=== PATIENT | male | born 1940 | race Asian ===

== ENCOUNTER 2017-05-17 21:38 | Inpatient (IN) | payer MEDICARE, OTHER ==
[2017-05-18 00:23] VITALS: BP 146/66
[2017-05-18 00:31] LABS: BASOPHILE ABSOLUTE 0.1 Th/cumm (0-0.2); EOSINOPHILE ABSOLUTE 0.2 Th/cmm (0.1-0.4); HEMATOCRIT 29.3 % (41.0-60); HEMOGLOBIN 9.9 gm/dL (12-16); LYMPHOCYTE ABSOLUTE 1.6 Th/cmm (1.5-3.0); MANUAL DIFF REQUIRED? YES; MEAN CELL VOLUME 93.9 fl (80-99); MEAN CORPUSCULAR HEMOGLOBIN 31.7 pg (27.0-31.0); MEAN CORPUSCULAR HGB CONC 33.7 pg (28.0-36.0); MEAN PLATELET VOLUME 7.7 fl; MONOCYTE ABSOLUTE 1.7 Th/cmm (0.3-1.0); NEUTROPHILE ABSOLUTE 16.8 Th/cmm (1.8-8.0); PLATELET COUNT 331 Th/cmm (150-400); RED BLOOD COUNT 3.12 Mil/cmm (3.80-5.80); RED CELL DISTRIBUTION WIDTH 13.6 % (11.5-20.0)
[2017-05-18 00:49] LABS: ALB/GLOB RATIO 0.8 (1.0-1.8); ALBUMIN 3.5 gm/dL (4.2-5.5); ALKALINE PHOSPHATASE 62 U/L (34-104); ANION GAP 14.1 (7.0-16.0); BILIRUBIN,DIRECT 0.11 mg/dL (0.0-0.2); BILIRUBIN,TOTAL 0.5 mg/dL (0.3-1.0); CARBON DIOXIDE 23.2 mEq/L (21.0-31.0); CHLORIDE 93 mEq/L (98-107); GLUCOSE 316 mg/dL (70-105); MAGNESIUM 2.6 mg/dL (1.9-2.7); PHOSPHOROUS 3.6 mg/dL (2.5-5.0); POTASSIUM SERUM 4.3 mEq/L (3.5-5.1); SGOT 14 U/L (13-39); SGPT/ALT 12 U/L (7-52); SODIUM SERUM 126 mEq/L (136-145); TOTAL PROTEIN,SERUM 7.7 gm/dL (6.0-8.3)
[2017-05-18 01:14] LABS: WHITE BLOOD COUNT 20.4 Th/cmm (4.8-10.8)
[2017-05-18 01:24] LABS: BUN - UREA NITROGEN 90 mg/dL (7-25)
[2017-05-18 01:25] LABS: CREATININE - SERUM 7.8 mg/dL (0.7-1.3)
[2017-05-18] MEDS ORDERED: metroNIDAZOLE 500mg/NS 100mL 500 MG/100 ML BAG IV ONE ×2 (01:33→02:17)
[2017-05-18] MEDS ORDERED: Piperacillin Sodium/Tazobact 2.25 gm Vial IV ONE (02:17)
[2017-05-18 02:40] LABS: BAND NEUTROPHILE 10 % (0-10); BASOPHIL 0 % (0-3); EOSINOPHIL 2 % (0-5); LYMPHOCYTE 4 % (20-50); MONOCYTE 4 % (2-10); NEUTROPHILS 80 % (40-80); TOTAL CELLS COUNTED 100
--- NOTE | 2017-05-18 03:24 | Transfer Summary ---
DATE OF TRANSFER: CODE: Full code patient His x-ray of the chest did not show any evidence of pneumonitis to best of my knowledge, but his white count came back to be high at 20,400 and hemoglobin is 9.9, and hematocrit is 29.3. He is feeling weak and tired and most likely he has evidence of peritonitis because of peritoneal dialysis that he gets, so most likely should be admitted in the hospital. The peritoneal shunt that he has should be removed. He might need a Perm-A-Cath and he will need antibiotics and I spoke to the patient's son and the son wanted Dr. Steve to be admitting doctor, so we will let Dr. Steve call him up and see if he would like to admit the patient in the hospital and we will start him on some antibiotic at the present moment. FINAL DIAGNOSES: 1. Most likely bacterial peritonitis. 2. History of fall. 3. Sprain in the right thumb. 4. Diabetes mellitus. 5. Coronary artery disease, coronary artery bypass grafting. 6. History of coronary artery bypass grafting x3 7. Hypercholesterolemia. 8. History of enlarged prostate. 9. Hypertension, hypertensive heart disease. 10. Peripheral vascular disease. 11. Glaucoma. 12. History of ulcers in the lower extremities. 13. Peripheral vascular disease. 14. The patient having gastroesophageal reflux disease. The most important diagnosis would be peritonitis, coronary artery disease, and end-stage renal failure, these are the three very acute, those are the diagnoses that I mentioned. The patient will be admitted under Dr. Steve. JOB# [id number]
[2017-05-18] MEDS ORDERED: Dextrose 50% 50 mL Abboject IVP PRN (03:41)
[2017-05-18] MEDS ORDERED: GLUCAGON HCl 1 MG KIT IM PRN (03:41)
[2017-05-18 05:49] LABS: BASOPHILE ABSOLUTE 0.1 Th/cumm (0-0.2); EOSINOPHILE ABSOLUTE 0.3 Th/cmm (0.1-0.4); HEMATOCRIT 29.4 % (41.0-60); HEMOGLOBIN 10.1 gm/dL (12-16); LYMPHOCYTE ABSOLUTE 1.5 Th/cmm (1.5-3.0); MEAN CELL VOLUME 92.9 fl (80-99); MEAN CORPUSCULAR HEMOGLOBIN 31.8 pg (27.0-31.0); MEAN CORPUSCULAR HGB CONC 34.2 pg (28.0-36.0); MEAN PLATELET VOLUME 7.6 fl; MONOCYTE ABSOLUTE 1.2 Th/cmm (0.3-1.0); PLATELET COUNT 333 Th/cmm (150-400); RED BLOOD COUNT 3.17 Mil/cmm (3.80-5.80); RED CELL DISTRIBUTION WIDTH 13.4 % (11.5-20.0)
[2017-05-18 06:07] LABS: ALB/GLOB RATIO 0.8 (1.0-1.8); ALBUMIN 3.3 gm/dL (4.2-5.5); ALKALINE PHOSPHATASE 59 U/L (34-104); ANION GAP 14.7 (7.0-16.0); BILIRUBIN,TOTAL 0.6 mg/dL (0.3-1.0); CALCIUM SERUM 8.9 mg/dL (8.6-10.3); CARBON DIOXIDE 24.5 mEq/L (21.0-31.0); CHLORIDE 93 mEq/L (98-107); ESR SEDIMENTATION SED RATE 36 mm/hr (0-20); GLUCOSE 265 mg/dL (70-105); MAGNESIUM 2.4 mg/dL (1.9-2.7); POTASSIUM SERUM 4.2 mEq/L (3.5-5.1); SGOT 13 U/L (13-39); SGPT/ALT 10 U/L (7-52); SODIUM SERUM 128 mEq/L (136-145); TOTAL PROTEIN,SERUM 7.3 gm/dL (6.0-8.3)
[2017-05-18 06:18] LABS: BUN - UREA NITROGEN 93 mg/dL (7-25)
[2017-05-18 06:19] LABS: CREATININE - SERUM 7.9 mg/dL (0.7-1.3)
[2017-05-18 06:24] LABS: % EOSINOPHILS 1.5 % (0.0-5.0); % LYMPHOCYTES 7.4 % (20.0-50.0); % MONOCYTES 5.8 % (2.0-10.0); WHITE BLOOD COUNT 20.1 Th/cmm (4.8-10.8)
[2017-05-18 06:25] LABS: % BASOPHILS 0.3 % (0.0-2.0)
--- NOTE | 2017-05-18 07:00 | ER Physician Documentation ---
DATE OF SERVICE: EMERGENCY ROOM EVALUATION AND TREATMENT This is a 77-year-old male patient who had a fall and hurt his right thumb and the base of the thumb is swollen and painful, and they want an x-ray to be done. The patient also has other medical history which will be listed below. HISTORY OF PRESENT ILLNESS: The patient had a fall today injuring his right great thumb and the base of the thumb which is painful, and the patient will need an x-ray of the right thumb. The patient has pain in the right thumb plus the patient's history was taken from the patient. The patient states that he had a fall, hurt his leg. PAST MEDICAL HISTORY: Includes end-stage renal failure, on hemodialysis, now he is getting daily peritoneal dialysis. He has diabetes mellitus, degenerative joint disease. He has arthritis. He has hypertension. 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 He says it just presented a month ago, but I think this might be present there for years. He must have just watched it. On the chest, he has a surgical scar of CABG seen. Peritoneal access is seen. OTHER MEDICAL PROBLEMS AND REVIEW OF SYSTEMS: EYES: No history of double vision, blurring, blindness, but he uses some eyedrops, Lumigan ____, in the right eye for his glaucoma. When I used the word glaucoma, he said yes, but I am not sure he is using that for that or some other associated condition also. ENT: No ear problem. No ear discharge. Pupils are equal, reacting to light and accommodation. Carotids are normal. Normal uplift. No bruit. CENTRAL NERVOUS SYSTEM: No history of TIA, stroke, encephalitis, meningitis. BONES AND JOINTS: The patient has some pain in the right lower extremity. There are 2 different ulcers, one is an ulcer that is healed and needs debridement. There is other ulcer that is not healing and he is putting some ointment, I am not sure what kind of ointment he is putting, but it is just some ointment that is recommended by his doctor, he puts it on, it does not heal him. PULMONARY CARRERA: The patient does not have any pneumonia, TB, pulmonary embolism, COPD, emphysema, bronchitis. CARDIAC CARRERA: The patient has myocardial revascularization surgery, about 3-vessel coronary artery bypass graft surgery done at [facility]. ENDOCRINE CARRERA: The patient has diabetes mellitus, but no history of hyper or hypothyroidism. No history of any Ranjit syndrome or thyroid disease. GASTROINTESTINAL CARRERA: No history of diarrhea, constipation, vomiting per the patient. GENITOURINARY CARRERA: The patient has end-stage renal failure. He is on peritoneal dialysis program. Before that, he was getting hemodialysis, but now he wants only peritoneal dialysis as he does not feel like going outside. Other total 12-lead review of systems was reviewed. The patient has a lipoma in the back. He has some pain in the lower back. He has mild GERD. He has no angina pectoris, no myocardial infarction. No rheumatic fever, valvular heart disease, pericardial disease. The patient does not have any problem with urination. He used to take prazosin 2 mg as needed, but he is not taking it now. ALLERGIES: No known allergies. CURRENT MEDICATIONS: Include that he is taking Renvela 800 mg one at mealtime; Protonix 40 mg once a day; simvastatin 20 mg once a day for his hypercholesterolemia; nicardipine 20 mg once a day, I do not think so this should be given, instead of that amlodipine and ANA inhibitor and beta-blockers are the ones to be given for this kind of patient; Isordil dinitrate, he is taking 20 mg twice a day which is a low dose, I am not sure whether he is very sensitive to that; metoprolol, he takes 50 mg twice a day; clonidine 0.3 mg twice a day; hydralazine 25 mg twice a day; gabapentin 100 mg twice a day; Lumigan 0.01% one drop at bedtime in the right eye; he is taking Lantus insulin 12 units at bedtime. FAMILY HISTORY: He has a history of hypertension and diabetes mellitus. PHYSICAL EXAMINATION: The patient on examination appears to be awake, alert, oriented, not in any acute cardiorespiratory distress. He appears to be 5 to 10 years older than the stated age. Most of his hairs are goodwin. He presented with his daughter and the . He said he fell down from the bed and he hurt himself in the hand. This is the first time. He did not want to say more details about the thing, but anyway he fell down. The base of the thumb is swollen, painful, and tender. The pulse in the right arm is somewhat feeble, but the left arm is normal. Conjunctivae are pink. Sclerae are white. HEENT is normal. He has bilateral cataract surgery done in the past. He has peritoneal dialysis catheter in the abdomen. No edema in the legs. No cyanosis, no petechia, no ecchymosis. He has ulcer in the lower extremities. The right lower leg above the ankle has two ulcers, one needs to be debrided, it is about 1 inch in size, but it is irregular in shape, about 5-6 mm irregularity. The other one is about 1 inch in size with areas of pus coming out from there. They are doing some dressing. They are doing ____ application, but not much of help to him. The patient's chest is clear. Tracheal ring central. Fairly good air entry in both lungs without any rales, rhonchi, or bronchial wheezing. Abdomen is soft, benign, and negative. Has a peritoneal dialysis catheter done by the son. Heart reveals a midline open CABG scar. S1, S2 are normal. Fourth heart sound is heard. Third heart sound is absent. No pericardial rub. No pacemaker, ICD device, etc are seen. Central nervous system is within normal limits. The triage nurse took the vital signs showing temperature to be 98.4, pulse is 91, respirations 18, blood pressure 146/66, saturation 96%. Height of 5 feet 8 inches, weighing 162 pounds. Pain is 5/10. Location of the pain is in the right thumb. He is a full code. He uses cane at home to walk. Loss of consciousness ____. He took flu vaccination on 12/25. He is not sure about pneumonia, tetanus. Drinking: He denies drinking formerly. He smoked formerly 45 years ago. So, he has history of COPD by default for sure. CLINICAL IMPRESSION: The patient has history of fall from the bed, injuring his right great thumb. One needs to rule out any fracture in the thumb, so we ordered an x-ray and we will give him some pain medication as needed. Other diagnoses include: 1. Diabetes mellitus, insulin-dependent, type 2. 2. End-stage renal failure for many years, before hemodialysis, now peritoneal dialysis daily. 3. Degenerative joint disease. 4. Hypertension and hypertensive heart disease. 5. Myocardial revascularization surgery. 6. History of hypertension and diabetes mellitus. 7. Hypercholesterolemia. He probably might have been having enlarged prostate and he is taking lot of medication. He has glaucoma. He has bilateral cataract surgery done in the past. He is taking Lantus insulin. He should not be taking nicardipine. He should be taking either amlodipine, besides that he is taking Isordil 20 mg twice a day. So the diagnosis, etc., once he gets some lab results, I will mention it, and then depending upon the results, further treatment will be given to the patient. JOB# [id number]
[2017-05-18] MEDS: INSULIN ASPART SLIDING SCALE 100 UNITS/ML UNIT SUBQ SCH ×4 (07:58→21:58)
--- NOTE | 2017-05-18 09:05 | Diagnostic Imaging Report ---
CHEST X-RAY: AP view INDICATION: Pneumonia, possible fracture COMPARISON: None FINDINGS: There is elevation of the right hemidiaphragm. Increased interstitial lung markings are noted. No focal consolidation or effusions. Heart size is at the upper limits of normal. There is evidence of prior median sternotomy. Degenerative changes spine and shoulders are noted. No evidence of pneumothorax IMPRESSION: Increased interstitial lung markings, nonspecific and may be chronic. A mild degree of congestion cannot be excluded Elevation of the right hemidiaphragm limiting assessment of the right lung base. Otherwise no focal consolidation identified. Evidence of median sternotomy. Atherosclerotic vascular disease. If there is clinical concern for etiology such as a rib fracture, dedicated rib series may be obtained for further assessment.
--- NOTE | 2017-05-18 09:14 | Diagnostic Imaging Report ---
Right wrist 3 views Indication: Pain rule out fracture Comparison: none Findings: There is slight irregularity of the distal radius which may be related to previous possibly old trauma. Advanced degenerative changes are seen most pronounced at the first carpometacarpal joint with fragmentation of the trapezium bone noted and first carpometacarpal joint subluxation. Diffuse atherosclerosis is noted. Impression: Slight irregularity of the distal radius. Findings favor old trauma. Please correlate with clinical findings. Otherwise no evidence of acute fracture. Advanced degenerative changes most pronounced at the first carpometacarpal joint with fragmentation of the trapezium and first carpometacarpal joint subluxation. Please clinical with clinical findings and old exams. Atherosclerotic vascular disease. In the setting of trauma, if clinical symptoms persist and there is continued concern for an occult fracture, follow up exams in 5-7 days is suggested.
--- NOTE | 2017-05-18 09:53 | History and Physical ---
History of Present Illness - HPI Chief Complaint: Pain in right thumb HPI: Patient came due to pain in right thumb, he refer felling tired x few days, labs were done and was found leukocytosis of 20.000. CXR show no disease, patient was admitted with the diagnosis of possible peritonitis. Vital Signs: Last Vital Signs Temp 98.6 F 05/18/17 05:34 Pulse 88 05/18/17 05:34 Resp 16 05/18/17 05:34 BP 144/82 05/18/17 05:34 Pulse Ox 99 05/18/17 05:34 Past Medical History Cardiovascular: Report: CAD, CHF, HTN Pulmonary: Report: No Pertinent Hx BUSINESS INTELLIGENCE REPORTING ANALYST: Report: No Pertinent Hx GI: Report: No Pertinent Hx Psych: Report: No Pertinent Hx Musculoskeletal: Report: Weakness Rheumatologic: Report: No pertinent Hx Infectious Disease: Report: No Pertinent Hx Renal/: Report: Chronic Renal Insuff, Benign Prostatic Enlarg, Other (Patient on PD) Endocrine: Report: Diabetes Dermatology: Report: Other (Ulcer in lower right extremity) - Past Surgical History Past Surgical History: Other (CABG) Family Medical History - Family Member Mother History Unknown: Yes Social History Smoke: No Alcohol: None Drugs: None Lives: With Family Domestic Violence: Negative - Medications Home Medications: Home Medication Medication Instructions Recorded Type Bimatoprost [Lumigan] 1 drop OP HS 05/18/17 History Clonidine HCl [Catapres] 0.3 mg PO BID 05/18/17 History Famotidine [Pepcid] 40 mg PO DAILY 05/18/17 History Gabapentin [Neurontin] 100 mg PO DAILY 05/18/17 History Hydralazine [Apresoline*] 25 mg PO BID 05/18/17 History Insulin Glargine, Recombinan 10 units SUBQ HS 05/18/17 History [Lantus] Insulin Lispro [Humalog] 0 unit SUBQ ACHS 05/18/17 History Isosorbide Dinitrate 20 mg PO TID 05/18/17 History Metoprolol Tartrate [Lopressor] 50 mg PO BID 05/18/17 History Nicardipine HCl 20 mg PO DAILY 05/18/17 History Prazosin HCl 2 mg PO DAILY 05/18/17 History Sevelamer Carbonate [Renvela] 800 mg PO X1 05/18/17 History Simvastatin [Zocor] 20 mg PO HS 05/18/17 History - Allergies Allergies/Adverse Reactions: Allergies Allergy/AdvReac Type Severity Reaction Status Date / Time No Known Allergies Allergy Verified 05/18/17 00:22 Review of Systems - Review of Systems Constitutional: Report: Weakness Eyes: Report: No Significant ENT: Report: No Significant Respiratory: Report: No Significant Cardiovascular: Report: No Significant Gastrointestinal: Report: Other (Patient in PD) Genitourinary: Report: No Significant Musculoskeletal: Report: Other (Pain in right thumb) Skin: Report: Other (right leg ulcer) Neurological: Report: Weakness Physical Exam - Physical Exam HEENT: Report: Ears Nose Throat within normal limits Neck: Report: Within normal limits Cardiovascular Systems: Report: Regular, Rate and Rhythm Respiratory: Report: Breath Sounds are within normal limits Abdomen: Report: Non-tender to palpation, Other (There is a Catheter for PD) Back: Report: Inspection of back is within normal limits. Extremities: Report: Other (There is an ulcer in right lower leg ) Skin: Report: Other (Right lower leg ulcer) Neuro/Psych: Report: Mood affect is within normal limits - Lab Results All Lab Results last 24 hours: Laboratory Results - last 24 hr 05/18/17 05/18/17 05/18/17 05:00 05:00 05:00 WBC 20.1 H* RBC 3.17 L Hgb 10.1 L Hct 29.4 L MCV 92.9 MCH 31.8 H MCHC Differential 34.2 RDW 13.4 Plt Count 333 MPV 7.6 Neutrophils % 85.0 H Lymphocytes % 7.4 L Monocytes % 5.8 Eosinophils % 1.5 Basophils % 0.3 ESR 36 H Sodium 128 L Potassium 4.2 Chloride 93 L Carbon Dioxide 24.5 Anion Gap 14.7 BUN 93 H* Creatinine 7.9 H* Est GFR ( Amer) TNP Est GFR (Non-Af Amer) TNP BUN/Creatinine Ratio 11.8 Glucose 265 H POC Glucose Calcium 8.9 Magnesium 2.4 Total Bilirubin 0.6 AST 13 ALT 10 Alkaline Phosphatase 59 C-Reactive Protein 14.7 H Total Protein 7.3 Albumin 3.3 L Globulin 4.0 Albumin/Globulin Ratio 0.8 L TSH 05/18/17 05/18/17 05:00 05:35 WBC RBC Hgb Hct MCV MCH MCHC Differential RDW Plt Count MPV Neutrophils % Lymphocytes % Monocytes % Eosinophils % Basophils % ESR Sodium Potassium Chloride Carbon Dioxide Anion Gap BUN Creatinine Est GFR ( Amer) Est GFR (Non-Af Amer) BUN/Creatinine Ratio Glucose POC Glucose 245 H Calcium Magnesium Total Bilirubin AST ALT Alkaline Phosphatase C-Reactive Protein Total Protein Albumin Globulin Albumin/Globulin Ratio TSH 0.93 - Assessment Assessment: Patient is awake, alert, calm in no acute distress. Dx: Leukocytosis possible secondary to Peritonitis, ESRD on PD, HTN, DM, BPH, PVD, PVD, S/P CABG, Sprain of right thumb. - Plan Plan: Patient in IV AB, Insulin sliding scale, continue with home meds, consult with Nephro, ID and surgery requested. Rufino continue to monitor.
[2017-05-18 15:24] LABS: URINE MICROSCOPIC INDICATED? YES; URINE SOURCE MIDSTREAM
[2017-05-18 15:33] LABS: URINE BILIRUBIN NEGATIVE (NEGATIVE); URINE BLOOD TRACE (NEGATIVE); URINE GLUCOSE (UA) 100 mg/dL (NEGATIVE); URINE KETONE NEGATIVE (NEGATIVE); URINE LEUKOCYTE ESTERASE NEGATIVE (NEGATIVE); URINE NITRATE NEGATIVE (NEGATIVE); URINE PH 7.5 (4.6 - 8.0); URINE PROTEIN 100 mg/dL (NEGATIVE); URINE UROBILINOGEN 0.2 E.U./dL (0.2 - 1.0)
[2017-05-18 16:06] LABS: URINE CLARITY CLEAR (CLEAR); URINE COLOR YELLOW
[2017-05-18 16:07] LABS: URINE BACTERIA NONE SEEN /hpf (NONE SEEN); URINE EPITHELIAL CELLS NONE SEEN /lpf (FEW); URINE WBC NONE SEEN /hpf (0-5)
[2017-05-18] MEDS ORDERED: CLONIDINE HCL 0.3 MG PO SCH (17:00)
[2017-05-18 20:04] LABS: A1C % 8.4 % (4.0-6.0)
[2017-05-18] MEDS ORDERED: BIMATOPROST OP SCH (21:00)
--- NOTE | 2017-05-18 23:40 | Consultation ---
DATE OF CONSULTATION: 05/18/2017 INFECTIOUS DISEASE CONSULTATION REFERRING PHYSICIAN: Dr. Martinez and Dr. Steve. REASON FOR CONSULTATION: Leukocytosis. HISTORY OF PRESENT ILLNESS: The patient is a 77-year-old male with past medical history of CKD stage 5, on peritoneal dialysis, presented to the ER with pain and swelling of the right thumb. He was also feeling very weak. On initial evaluation, the patient's temperature was 98.2 degree Fahrenheit and WBC count was 20,400 with neutrophil 80%. However, the patient was started on Rocephin and vancomycin. The patient also received one dose of Zosyn. ID consult was called for leukocytosis. The patient denies any fever, chills, or abdominal pain. His right thumb swelling and pain has improved now. PAST MEDICAL HISTORY: Includes CKD stage 4, on peritoneal dialysis; diabetes mellitus type 2, DJD, arthritis, hypertension, and lipoma. ALLERGIES: NKDA. MEDICATIONS: See medication reconciliation sheet. Antibiotic oneal, the patient is on vancomycin and Rocephin. FAMILY HISTORY: Hypertension and diabetes. SOCIAL HISTORY: The patient lives at home. Denies any smoking, alcohol, or drug use. REVIEW OF SYSTEMS: GENERAL: The patient denies any fever or chills. HEENT: Denies any diplopia, photophobia, or sore throat. RESPIRATORY: The patient denies any cough or shortness of breath. CARDIOVASCULAR: Denies any chest pain or palpitation. GASTROINTESTINAL: The patient denies any nausea, vomiting, diarrhea, or constipation. GENITOURINARY: The patient is on peritoneal dialysis. MUSCULOSKELETAL: The patient has right thumb swelling and pain, which has improved now. No pain and no swelling now. CENTRAL NERVOUS SYSTEM: No headache, no dizziness, and no focal weakness. SKIN: The patient has gangrenous wound and another wound with slough in right leg. PHYSICAL EXAMINATION: VITAL SIGNS: Current vital signs shows temperature is 98.6, pulse 88, respirations 16, blood pressure is 144/82, and oxygen saturation 99%. GENERAL: A pleasant, comfortable lying in the bed, not in acute distress. HEENT: Head is normocephalic and atraumatic. Oral cavity moist, pink tongue. Eyes: No pallor, no icterus. Pupils PERRLA, EOMI. NECK: Supple. No JVD. No carotid bruit. Trachea midline. CHEST: Bilateral breath sounds. No crackles or wheezing. HEART: S1, S2 within normal limits. Regular rhythm. No murmur. No gallop. ABDOMEN: Soft, nontender, and nondistended. Bowel sounds present. EXTREMITIES: No cyanosis. ABDOMEN: Soft, nontender, and nondistended. Bowel sounds present. PD catheter site is clear. EXTREMITIES: No cyanosis, no clubbing, and no edema. The patient has gangrenous wound and another wound with same size on his right leg. There is no discharge and no erythema. NEUROLOGICAL: Alert, awake, and oriented x 3. No focal deficit. LABORATORY DATA: Current lab shows WBC count is 20,100, hemoglobin 10.1, hematocrit is 29.4, platelets are 333,000, and neutrophil 85%. ESR 36. Sodium 138, potassium 4.2, chloride 93, bicarbonate is 24.5, BUN is 93, creatinine 7.9, and glucose is 245. LFTs reviewed. Chest x-ray showed increased interstitial marking, chronic in nature; elevation of right diaphragm. X-ray of the wrist showed slight irregularity of distal radius, may have old trauma, DJD. IMPRESSION: 1. Leukocytosis. 2. Right leg wound. 3. Right arm cellulitis, improved. 4. Chronic kidney disease stage 5, on peritoneal dialysis. 5. Diabetes mellitus type 2. 6. Hypertension. RECOMMENDATIONS: We will continue Rocephin, Zithromax, and vancomycin. Wound care arterial study. may get peritoneal fluid study. Discussed with RN. Thank you, Dr Steve/Dr Martinez for involving me in taking care of this patient. JOB# [id number] [facility]
[2017-05-19] MEDS: INSULIN ASPART SLIDING SCALE 100 UNITS/ML UNIT SUBQ SCH ×4 (07:07→21:49)
[2017-05-19] MEDS ORDERED: NICARDIPINE HCL 20 MG PO SCH (09:00)
[2017-05-19] MEDS ORDERED: FAMOTIDINE 40 MG PO SCH (09:00)
--- NOTE | 2017-05-19 16:33 | General Progress Note ---
Subjective - Review of Systems Service Date: 05/19/17 Subjective: I still weak. Objective - Results Result Diagrams: 05/18/17 05:00 05/18/17 05:00 Recent Labs: Laboratory Last Values WBC 20.1 Th/cmm (4.8-10.8) H* 05/18/17 05:00 RBC 3.17 Mil/cmm (3.80-5.80) L 05/18/17 05:00 Hgb 10.1 gm/dL (12-16) L 05/18/17 05:00 Hct 29.4 % (41.0-60) L 05/18/17 05:00 MCV 92.9 fl (80-99) 05/18/17 05:00 MCH 31.8 pg (27.0-31.0) H 05/18/17 05:00 MCHC Differential 34.2 pg (28.0-36.0) 05/18/17 05:00 RDW 13.4 % (11.5-20.0) 05/18/17 05:00 Plt Count 333 Th/cmm (150-400) 05/18/17 05:00 MPV 7.6 fl 05/18/17 05:00 Neutrophils % 85.0 % (40.0-80.0) H 05/18/17 05:00 Band Neutrophils % 10 % (0-10) 05/17/17 23:45 Lymphocytes % 7.4 % (20.0-50.0) L 05/18/17 05:00 Monocytes % 5.8 % (2.0-10.0) 05/18/17 05:00 Eosinophils % 1.5 % (0.0-5.0) 05/18/17 05:00 Basophils % 0.3 % (0.0-2.0) 05/18/17 05:00 Neutrophils (Manual) 80 % (40-80) 05/17/17 23:45 Lymphocytes 4 % (20-50) L 05/17/17 23:45 Monocytes 4 % (2-10) 05/17/17 23:45 Eosinophils 2 % (0-5) 05/17/17 23:45 Basophils 0 % (0-3) 05/17/17 23:45 ESR 36 mm/hr (0-20) H 05/18/17 05:00 Sodium 128 mEq/L (136-145) L 05/18/17 05:00 Potassium 4.2 mEq/L (3.5-5.1) 05/18/17 05:00 Chloride 93 mEq/L (98-107) L 05/18/17 05:00 Carbon Dioxide 24.5 mEq/L (21.0-31.0) 05/18/17 05:00 Anion Gap 14.7 (7.0-16.0) 05/18/17 05:00 BUN 93 mg/dL (7-25) H* 05/18/17 05:00 Creatinine 7.9 mg/dL (0.7-1.3) H* 05/18/17 05:00 Est GFR ( Amer) TNP 05/18/17 05:00 Est GFR (Non-Af Amer) TNP 05/18/17 05:00 BUN/Creatinine Ratio 11.8 05/18/17 05:00 Glucose 265 mg/dL (70-105) H 05/18/17 05:00 POC Glucose 247 MG/DL (70 - 105) H 05/19/17 11:42 Hemoglobin A1c % 8.4 % (4.0-6.0) H 05/17/17 23:45 Whole Bld Lactic Acid 1.72 mmol/L (0.60-1.99) 05/17/17 23:45 Calcium 8.9 mg/dL (8.6-10.3) 05/18/17 05:00 Phosphorus 3.6 mg/dL (2.5-5.0) 05/17/17 23:45 Magnesium 2.4 mg/dL (1.9-2.7) 05/18/17 05:00 Total Bilirubin 0.6 mg/dL (0.3-1.0) 05/18/17 05:00 Direct Bilirubin 0.11 mg/dL (0.0-0.2) 05/17/17 23:45 AST 13 U/L (13-39) 05/18/17 05:00 ALT 10 U/L (7-52) 05/18/17 05:00 Alkaline Phosphatase 59 U/L (34-104) 05/18/17 05:00 Troponin I 0.06 ng/mL (0.01-0.05) H 03/09/18 23:45 C-Reactive Protein 14.7 mg/dL (0.0-0.9) H 05/18/17 05:00 B-Natriuretic Peptide 287.0 pg/mL (5.0-100.0) H 05/17/17 23:45 Total Protein 7.3 gm/dL (6.0-8.3) 05/18/17 05:00 Albumin 3.3 gm/dL (4.2-5.5) L 05/18/17 05:00 Globulin 4.0 gm/dL 05/18/17 05:00 Albumin/Globulin Ratio 0.8 (1.0-1.8) L 05/18/17 05:00 TSH 0.93 uIU/ml (0.34-5.60) 05/18/17 05:00 Urine Source MIDSTREAM 05/18/17 14:30 Urine Color YELLOW 05/18/17 14:30 Urine Clarity CLEAR (CLEAR) 05/18/17 14:30 Urine pH 7.5 (4.6 - 8.0) 05/18/17 14:30 Ur Specific [place] 1.010 (1.005-1.030) 05/18/17 14:30 Urine Protein 100 mg/dL (NEGATIVE) H 05/18/17 14:30 Urine Glucose (UA) 100 mg/dL (NEGATIVE) H 05/18/17 14:30 Urine Ketones NEGATIVE mg/dL (NEGATIVE) 05/18/17 14:30 Urine Blood TRACE (NEGATIVE) 05/18/17 14:30 Urine Nitrate NEGATIVE (NEGATIVE) 05/18/17 14:30 Urine Bilirubin NEGATIVE (NEGATIVE) 05/18/17 14:30 Urine Urobilinogen 0.2 E.U./dL (0.2 - 1.0) 05/18/17 14:30 Ur Leukocyte Esterase NEGATIVE (NEGATIVE) 05/18/17 14:30 Urine RBC 2-5 /hpf (0-5) H 05/18/17 14:30 Urine WBC NONE SEEN /hpf (0-5) 05/18/17 14:30 Ur Epithelial Cells NONE SEEN /lpf (FEW) 05/18/17 14:30 Urine Bacteria NONE SEEN /hpf (NONE SEEN) 05/18/17 14:30 Random Vancomycin 11.0 ug/mL (5.0-40.0) 05/19/17 05:12 - Physical Exam Vitals and I&O: Vital Signs Temp 99.4 F 05/19/17 04:00 Pulse 71 05/19/17 15:59 Resp 16 05/19/17 04:00 BP 143/78 05/19/17 15:59 Pulse Ox 97 05/19/17 04:00 Intake & Output 05/18/17 05/19/17 05/19/17 17:59 06:59 18:59 Intake Total 163 Output Total Balance 163 Weight (lbs) 73.936 kg Intake: Oral 163 Output: Urine Other: # Voids # Bowel Movements Active Medications: Current Medications Amlodipine Besylate (Norvasc) 5 mg PO DAILY [facility] Stop: 07/18/17 08:59 Last Admin: 05/19/17 10:25 Dose: 5 mg Brimonidine Tartrate (Alphagan 0.1% Ophth Soln) 1 drop EACH EYE HS [facility] Stop: 07/17/17 20:59 Last Admin: 05/18/17 21:58 Dose: 1 drop Dextrose (D50w) 50 ml IVP PRN PRN PRN Reason: Blood Glucose less than 70 Stop: 07/17/17 03:40 Dextrose (Glutose 40%) 18.75 gm PO PRN PRN PRN Reason: Blood Glucose less than 70 Stop: 07/17/17 03:40 Famotidine (Pepcid) 40 mg PO DAILY [facility] Stop: 07/18/17 08:59 Last Admin: 05/19/17 10:21 Dose: 40 mg Gabapentin (Neurontin) 100 mg PO DAILY [facility] Stop: 07/18/17 08:59 Last Admin: 05/19/17 10:22 Dose: 100 mg Glucagon (Glucagen) 1 mg IM PRN PRN PRN Reason: Blood Glucose less than 70 Stop: 07/17/17 03:40 Hydralazine HCl (Apresoline) 25 mg PO BID [facility] Stop: 07/17/17 16:59 Last Admin: 05/19/17 10:20 Dose: 25 mg Ceftriaxone Sodium 1 gm/ (Dextrose) 50 mls @ 100 mls/hr IV Q24H [facility] Stop: 07/17/17 00:59 Last Admin: 05/19/17 01:31 Dose: 100 mls/hr Insulin Aspart (Novolog Insulin Sliding Scale) 0 units SUBQ ACHS [place] PRN Reason: Protocol Stop: 07/17/17 07:29 Last Admin: 05/19/17 12:36 Dose: 4 units Isosorbide Dinitrate (Isordil) 20 mg PO TID [facility] Stop: 07/17/17 13:59 Last Admin: 05/19/17 15:59 Dose: 20 mg Metoprolol Tartrate (Lopressor) 50 mg PO BID [facility] Stop: 07/17/17 16:59 Last Admin: 05/19/17 10:22 Dose: 50 mg Miscellaneous (Vancomycin Iv Per Pharmacy) 1 ea [facility] PRN PRN PRN Reason: PROTOCOL Stop: 07/17/17 03:45 Simvastatin (Zocor) 20 mg PO HS [facility] PRN Reason: Protocol Stop: 07/17/17 20:59 Last Admin: 05/18/17 21:59 Dose: 20 mg General: Alert, No acute distress HEENT: Atraumatic Neck: Supple Cardiovascular: Regular rate Lungs: Clear to auscultation Abdomen: Bowel sounds, Soft Extremities: Other (No edema) Neurological: Normal gait Skin: Other (Ulcer in right leg) Psych/Mental Status: Mental status NL Assessment/Plan - Assessment Assessment: Patient is awake, alert, calm in no acute distress. Dx: Leukocytosis possible secondary to Peritonitis, ESRD on PD, HTN, DM, BPH, PVD, PVD, S/P CABG, Sprain of right thumb. - Plan Plan: Patient in IV AB, Insulin sliding scale, continue with home meds, consult with Nephro, ID and surgery requested. Rufino continue to monitor.
[2017-05-19 17:04] LABS: % BASOPHILS 0.9 % (0.0-2.0); % EOSINOPHILS 5.1 % (0.0-5.0); % LYMPHOCYTES 6.5 % (20.0-50.0); % MONOCYTES 6.8 % (2.0-10.0); % NEUTROPHILS 80.7 % (40.0-80.0); BASOPHILE ABSOLUTE 0.2 Th/cumm (0-0.2); HEMATOCRIT 28.4 % (41.0-60); HEMOGLOBIN 9.6 gm/dL (12-16); LYMPHOCYTE ABSOLUTE 1.3 Th/cmm (1.5-3.0); MEAN CELL VOLUME 94.2 fl (80-99); MEAN CORPUSCULAR HEMOGLOBIN 31.7 pg (27.0-31.0); MEAN CORPUSCULAR HGB CONC 33.7 pg (28.0-36.0); MEAN PLATELET VOLUME 7.2 fl; MONOCYTE ABSOLUTE 1.4 Th/cmm (0.3-1.0); PLATELET COUNT 338 Th/cmm (150-400); RED BLOOD COUNT 3.02 Mil/cmm (3.80-5.80); RED CELL DISTRIBUTION WIDTH 13.3 % (11.5-20.0)
[2017-05-19 17:09] LABS: WHITE BLOOD COUNT 19.9 Th/cmm (4.8-10.8)
[2017-05-19 17:19] LABS: ALB/GLOB RATIO 0.8 (1.0-1.8); ALBUMIN 2.8 gm/dL (4.2-5.5); ALKALINE PHOSPHATASE 50 U/L (34-104); ANION GAP 12.2 (7.0-16.0); BILIRUBIN,TOTAL 0.4 mg/dL (0.3-1.0); CALCIUM SERUM 8.9 mg/dL (8.6-10.3); CARBON DIOXIDE 22.6 mEq/L (21.0-31.0); CHLORIDE 99 mEq/L (98-107); GLUCOSE 191 mg/dL (70-105); POTASSIUM SERUM 4.8 mEq/L (3.5-5.1); SGOT 14 U/L (13-39); SGPT/ALT 12 U/L (7-52); SODIUM SERUM 129 mEq/L (136-145); TOTAL PROTEIN,SERUM 6.3 gm/dL (6.0-8.3)
[2017-05-19 17:57] LABS: BUN - UREA NITROGEN 101 mg/dL (7-25)
[2017-05-19 17:58] LABS: CREATININE - SERUM 7.6 mg/dL (0.7-1.3)
--- NOTE | 2017-05-19 23:01 | Consultation ---
DATE OF CONSULTATION: 05/19/2017 AGE OF THE PATIENT: 77 years. SEX: Male. RACE: -[place] from [facility]. HISTORY OF PRESENT ILLNESS: This patient came here late Saturday night and got admitted on early Saturday morning as per the referral of Dr. Hopper because the patient had been on peritoneal dialysis in the [facility] and was having some problems. The patient stated that he was feeling weak, his appetite was going down, and he had pain in the arms and hands and because of which he was concerned. The patient states that the last exchange done was on night. I was informed just about maybe about 2 o'clock that there was a consult to be seen in the hospital that is on . When I came here and talked to the patient out here, he stated that he had been on peritoneal dialysis for 3-1/2 years. He has not been on hemodialysis; at least that is what he says. He is not able to tell me the total history of his problem, but apparently with the medicines it looks like he is on medications for diabetes, hypertension, and some for kidney disease. The extent of the kidney disease and other things are not known because we do not have any chemistries on him as yet. Also, it is surprising that he did not inform the nurse coordinator for peritoneal dialysis; they are aware he was having any problem nor were they able to talk to the doctor and the doctor's name they are giving me is ____. They said that they tried to call him, and they were not able to contact anyone of them. The patient does not know much more about other things. PHYSICAL EXAMINATION: GENERAL: The patient examined, is an average well-built male who looks younger than his stated age. He is conscious, trying to be cooperative. Denies any pains or aches at least at the present time, just does not feel good. NECK: Jugular venous pressure clinically is not raised. CHEST: Reveals reasonable air entry. Few rhonchi. No significant rales. ABDOMEN: The patient does have a dialysis catheter there, and does not seem to be significantly tender or anything. There seems to be wakefulness and mild discomfort on pressing. No other significant findings noticed on examination. EXTREMITIES: Lower extremities do not reveal any significant edema. Biochemical data is awaited; therefore, not much further action can be taken at least at the present time. Etiology for these problems could be due to less dialysis or for whatever reason, may be inefficient dialysis, but other reasons cannot be ruled out. The patient does not look like to be in a dire emergency right now. We will wait until the chemistries are available. DIAGNOSES: Remains as; 1. The patient has end-stage renal failure, on peritoneal dialysis. 2. Diabetes mellitus. 3. Hypertension. 4. Likely some other disorders, including anemia and other things. Need to get the chemistries and then decide further what needs to be done. JOB# [id number]
--- NOTE | 2017-05-20 00:02 | Infectious Disease Prog Note ---
Infectious Disease Subjective - Review of Systems Service Date: 05/19/17 Subjective: There is no new change, no fever. Infectious Disease Objective - Results Result Diagrams: 05/19/17 16:58 05/19/17 16:58 Recent Labs: Laboratory Last Values WBC 19.9 Th/cmm (4.8-10.8) H 05/19/17 16:58 RBC 3.02 Mil/cmm (3.80-5.80) L 05/19/17 16:58 Hgb 9.6 gm/dL (12-16) L 05/19/17 16:58 Hct 28.4 % (41.0-60) L 05/19/17 16:58 MCV 94.2 fl (80-99) 05/19/17 16:58 MCH 31.7 pg (27.0-31.0) H 05/19/17 16:58 MCHC Differential 33.7 pg (28.0-36.0) 05/19/17 16:58 RDW 13.3 % (11.5-20.0) 05/19/17 16:58 Plt Count 338 Th/cmm (150-400) 05/19/17 16:58 MPV 7.2 fl 05/19/17 16:58 Neutrophils % 80.7 % (40.0-80.0) H 05/19/17 16:58 Band Neutrophils % 10 % (0-10) 05/17/17 23:45 Lymphocytes % 6.5 % (20.0-50.0) L 05/19/17 16:58 Monocytes % 6.8 % (2.0-10.0) 05/19/17 16:58 Eosinophils % 5.1 % (0.0-5.0) H 05/19/17 16:58 Basophils % 0.9 % (0.0-2.0) 05/19/17 16:58 Neutrophils (Manual) 80 % (40-80) 05/17/17 23:45 Lymphocytes 4 % (20-50) L 05/17/17 23:45 Monocytes 4 % (2-10) 05/17/17 23:45 Eosinophils 2 % (0-5) 05/17/17 23:45 Basophils 0 % (0-3) 05/17/17 23:45 ESR 36 mm/hr (0-20) H 05/18/17 05:00 Sodium 129 mEq/L (136-145) L 05/19/17 16:58 Potassium 4.8 mEq/L (3.5-5.1) 05/19/17 16:58 Chloride 99 mEq/L (98-107) 05/19/17 16:58 Carbon Dioxide 22.6 mEq/L (21.0-31.0) 05/19/17 16:58 Anion Gap 12.2 (7.0-16.0) 05/19/17 16:58 BUN 101 mg/dL (7-25) H* 05/19/17 16:58 Creatinine 7.6 mg/dL (0.7-1.3) H* 05/19/17 16:58 Est GFR ( Amer) TNP 05/19/17 16:58 Est GFR (Non-Af Amer) TNP 05/19/17 16:58 BUN/Creatinine Ratio 13.3 05/19/17 16:58 Glucose 191 mg/dL (70-105) H 05/19/17 16:58 POC Glucose 313 MG/DL (70 - 105) H 05/19/17 20:58 Hemoglobin A1c % 8.4 % (4.0-6.0) H 05/17/17 23:45 Whole Bld Lactic Acid 1.72 mmol/L (0.60-1.99) 05/17/17 23:45 Calcium 8.9 mg/dL (8.6-10.3) 05/19/17 16:58 Phosphorus 3.6 mg/dL (2.5-5.0) 05/17/17 23:45 Magnesium 2.4 mg/dL (1.9-2.7) 05/18/17 05:00 Total Bilirubin 0.4 mg/dL (0.3-1.0) 05/19/17 16:58 Direct Bilirubin 0.11 mg/dL (0.0-0.2) 05/17/17 23:45 AST 14 U/L (13-39) 05/19/17 16:58 ALT 12 U/L (7-52) 05/19/17 16:58 Alkaline Phosphatase 50 U/L (34-104) 05/19/17 16:58 Troponin I 0.06 ng/mL (0.01-0.05) H 05/17/17 23:45 C-Reactive Protein 14.7 mg/dL (0.0-0.9) H 05/18/17 05:00 B-Natriuretic Peptide 287.0 pg/mL (5.0-100.0) H 05/17/17 23:45 Total Protein 6.3 gm/dL (6.0-8.3) 05/19/17 16:58 Albumin 2.8 gm/dL (4.2-5.5) L 05/19/17 16:58 Globulin 3.5 gm/dL 05/19/17 16:58 Albumin/Globulin Ratio 0.8 (1.0-1.8) L 05/19/17 16:58 TSH 0.93 uIU/ml (0.34-5.60) 05/18/17 05:00 Urine Source MIDSTREAM 05/18/17 14:30 Urine Color YELLOW 05/18/17 14:30 Urine Clarity CLEAR (CLEAR) 05/18/17 14:30 Urine pH 7.5 (4.6 - 8.0) 05/18/17 14:30 Ur Specific [place] 1.010 (1.005-1.030) 05/18/17 14:30 Urine Protein 100 mg/dL (NEGATIVE) H 05/18/17 14:30 Urine Glucose (UA) 100 mg/dL (NEGATIVE) H 05/18/17 14:30 Urine Ketones NEGATIVE mg/dL (NEGATIVE) 05/18/17 14:30 Urine Blood TRACE (NEGATIVE) 05/18/17 14:30 Urine Nitrate NEGATIVE (NEGATIVE) 05/18/17 14:30 Urine Bilirubin NEGATIVE (NEGATIVE) 05/18/17 14:30 Urine Urobilinogen 0.2 E.U./dL (0.2 - 1.0) 05/18/17 14:30 Ur Leukocyte Esterase NEGATIVE (NEGATIVE) 05/18/17 14:30 Urine RBC 2-5 /hpf (0-5) H 05/18/17 14:30 Urine WBC NONE SEEN /hpf (0-5) 05/18/17 14:30 Ur Epithelial Cells NONE SEEN /lpf (FEW) 05/18/17 14:30 Urine Bacteria NONE SEEN /hpf (NONE SEEN) 05/18/17 14:30 Random Vancomycin 11.0 ug/mL (5.0-40.0) 05/19/17 05:12 - Physical Exam Vitals and I&O: Vital Signs Temp 98.0 F 05/19/17 20:00 Pulse 81 05/19/17 21:48 Resp 17 05/19/17 20:00 BP 127/68 05/19/17 21:48 Pulse Ox 96 05/19/17 20:00 Intake & Output 05/19/17 05/19/17 05/20/17 06:59 18:59 06:59 Intake Total 163 450 Output Total Balance 163 450 Weight (lbs) 73.936 kg 73.936 kg Intake: Oral 163 450 Output: Urine Other: # Voids # Bowel Movements Active Medications: Current Medications Amlodipine Besylate (Norvasc) 5 mg PO DAILY [facility] Stop: 07/18/17 08:59 Last Admin: 05/19/17 10:25 Dose: 5 mg Brimonidine Tartrate (Alphagan 0.1% Ophth Soln) 1 drop EACH EYE HS [facility] Stop: 07/17/17 20:59 Last Admin: 05/19/17 21:48 Dose: 1 drop Dextrose (D50w) 50 ml IVP PRN PRN PRN Reason: Blood Glucose less than 70 Stop: 07/17/17 03:40 Dextrose (Glutose 40%) 18.75 gm PO PRN PRN PRN Reason: Blood Glucose less than 70 Stop: 07/17/17 03:40 Famotidine (Pepcid) 40 mg PO DAILY [facility] Stop: 07/18/17 08:59 Last Admin: 05/19/17 10:21 Dose: 40 mg Gabapentin (Neurontin) 100 mg PO DAILY [facility] Stop: 07/18/17 08:59 Last Admin: 05/19/17 10:22 Dose: 100 mg Glucagon (Glucagen) 1 mg IM PRN PRN PRN Reason: Blood Glucose less than 70 Stop: 07/17/17 03:40 Hydralazine HCl (Apresoline) 25 mg PO BID [facility] Stop: 07/17/17 16:59 Last Admin: 05/19/17 10:20 Dose: 25 mg Ceftriaxone Sodium 1 gm/ (Dextrose) 50 mls @ 100 mls/hr IV Q24H [facility] Stop: 07/17/17 00:59 Last Admin: 05/19/17 01:31 Dose: 100 mls/hr Insulin Aspart (Novolog Insulin Sliding Scale) 0 units SUBQ ACHS [facility] PRN Reason: Protocol Stop: 07/17/17 07:29 Last Admin: 05/19/17 21:49 Dose: 8 units Isosorbide Dinitrate (Isordil) 20 mg PO TID [facility] Stop: 07/17/17 13:59 Last Admin: 05/19/17 21:48 Dose: 20 mg Metoprolol Tartrate (Lopressor) 50 mg PO BID [facility] Stop: 07/17/17 16:59 Last Admin: 05/19/17 18:20 Dose: Not Given Miscellaneous (Vancomycin Iv Per Pharmacy) 1 ea [facility] PRN PRN PRN Reason: PROTOCOL Stop: 07/17/17 03:45 Simvastatin (Zocor) 20 mg PO HS [facility] PRN Reason: Protocol Stop: 07/17/17 20:59 Last Admin: 05/19/17 21:49 Dose: 20 mg General: no acute distress, well developed, well nourished HEENT: atraumatic, normocephalic, PERRLA Neck: supple, no thyromegaly Cardiovascular: S1S2, regular Lungs: clear to auscultation bilaterally, clear to percussion Abdomen: soft, no tender, no distended, no mass Extremities: no cyanosis, no clubbing, no edema Neurological: awake, alert, oriented Skin: intact Infectious Disease Assmt/Plan - Assessment Assessment: 1. Leukocytosis. 2. Right leg wound. 3. Right arm cellulitis, improved. 4. Chronic kidney disease stage 5, on peritoneal dialysis. 5. Diabetes mellitus type 2. 6. Hypertension. - Plan Plan: Continue Rocephin, Zithromax, and vancomycin. Wound care, arterial study. may get peritoneal fluid study.
[2017-05-20] MEDS: INSULIN ASPART SLIDING SCALE 100 UNITS/ML UNIT SUBQ SCH ×4 (06:45→22:51)
[2017-05-20 07:02] LABS: BASOPHILE ABSOLUTE 0.1 Th/cumm (0-0.2); EOSINOPHILE ABSOLUTE 0.9 Th/cmm (0.1-0.4); HEMATOCRIT 30.2 % (41.0-60); HEMOGLOBIN 10.3 gm/dL (12-16); RED BLOOD COUNT 3.23 Mil/cmm (3.80-5.80)
[2017-05-20 07:06] LABS: % BASOPHILS 0.8 % (0.0-2.0); % LYMPHOCYTES 5.7 % (20.0-50.0); % MONOCYTES 6.8 % (2.0-10.0); % NEUTROPHILS 81.7 % (40.0-80.0); LYMPHOCYTE ABSOLUTE 1.1 Th/cmm (1.5-3.0); MEAN CELL VOLUME 93.3 fl (80-99); MEAN CORPUSCULAR HEMOGLOBIN 31.9 pg (27.0-31.0); MEAN CORPUSCULAR HGB CONC 34.1 pg (28.0-36.0); MEAN PLATELET VOLUME 8.1 fl; MONOCYTE ABSOLUTE 1.3 Th/cmm (0.3-1.0); NEUTROPHILE ABSOLUTE 15.1 Th/cmm (1.8-8.0); PLATELET COUNT 337 Th/cmm (150-400); RED CELL DISTRIBUTION WIDTH 13.7 % (11.5-20.0)
[2017-05-20 07:17] LABS: ALB/GLOB RATIO 0.8 (1.0-1.8); ALKALINE PHOSPHATASE 58 U/L (34-104); ANION GAP 12.9 (7.0-16.0); BILIRUBIN,TOTAL 0.3 mg/dL (0.3-1.0); CALCIUM SERUM 9.1 mg/dL (8.6-10.3); CARBON DIOXIDE 23.5 mEq/L (21.0-31.0); CHLORIDE 96 mEq/L (98-107); POTASSIUM SERUM 4.4 mEq/L (3.5-5.1); SGOT 16 U/L (13-39); SGPT/ALT 15 U/L (7-52); SODIUM SERUM 128 mEq/L (136-145); TOTAL PROTEIN,SERUM 6.9 gm/dL (6.0-8.3)
[2017-05-20 07:18] LABS: WHITE BLOOD COUNT 18.5 Th/cmm (4.8-10.8)
[2017-05-20 07:24] LABS: BUN - UREA NITROGEN 93 mg/dL (7-25); CREATININE - SERUM 6.9 mg/dL (0.7-1.3)
[2017-05-20 07:28] LABS: GLUCOSE 446 mg/dL (70-105)
--- NOTE | 2017-05-20 08:23 | Diagnostic Imaging Report ---
Right upper extremity DVT study HISTORY: Right thumb swelling COMPARISON: None Technique: Longitudinal and transverse sonographic images of the right upper extremity veins were obtained with doppler analysis. FINDINGS: There is patency of the right jugular, subclavian, axillary, brachial, basilic, and cephalic veins. Compressibility and augmentation is demonstrated with no evidence of DVT formation. IMPRESSION: No evidence of DVT within the right upper extremity venous system.
[2017-05-20] MEDS ORDERED: Propofol 10 mg/mL 20mL Vial **SURGERY USE ONLY IV ONE (12:05)
--- NOTE | 2017-05-20 12:45 | Diagnostic Imaging Report ---
Right lower extremity arterial Doppler study HISTORY: Peripheral arterial disease COMPARISON: None Technique: Longitudinal and transverse sonographic images of the right lower extremity arteries were obtained with doppler analysis. FINDINGS: Exam of the right side demonstrates moderate to severe atherosclerotic vascular disease with primarily triphasic and biphasic waveforms. There are monophasic waveforms distally along the tibialis posterior and dorsalis pedis artery with decreased velocity of the tibialis posterior artery at 21.3 cm/second. Note patient refused assessment of the left side and bilateral ankle brachial indices. IMPRESSION: Incomplete exam as patient refused assessment of the left lower extremity and also refused bilateral ankle-brachial indices. Moderate to severe atherosclerotic vascular disease of the right side is noted, greatest distally. No sonographic evidence of occlusion. Please correlate clinically. Recommend additional images of the left side when patient can tolerate the remaining portion of the examination.
--- NOTE | 2017-05-20 14:21 | General Progress Note ---
Subjective - Review of Systems Service Date: 05/20/17 Subjective: alert, right thumb pain, denied abd pain Objective - Results Result Diagrams: 05/20/17 06:20 05/20/17 06:20 Recent Labs: Laboratory Last Values WBC 18.5 Th/cmm (4.8-10.8) H 05/20/17 06:20 RBC 3.23 Mil/cmm (3.80-5.80) L 05/20/17 06:20 Hgb 10.3 gm/dL (12-16) L 05/20/17 06:20 Hct 30.2 % (41.0-60) L 05/20/17 06:20 MCV 93.3 fl (80-99) 05/20/17 06:20 MCH 31.9 pg (27.0-31.0) H 05/20/17 06:20 MCHC Differential 34.1 pg (28.0-36.0) 05/20/17 06:20 RDW 13.7 % (11.5-20.0) 05/20/17 06:20 Plt Count 337 Th/cmm (150-400) 05/20/17 06:20 MPV 8.1 fl 05/20/17 06:20 Neutrophils % 81.7 % (40.0-80.0) H 05/20/17 06:20 Band Neutrophils % 10 % (0-10) 05/17/17 23:45 Lymphocytes % 5.7 % (20.0-50.0) L 05/20/17 06:20 Monocytes % 6.8 % (2.0-10.0) 05/20/17 06:20 Eosinophils % 5.0 % (0.0-5.0) 05/20/17 06:20 Basophils % 0.8 % (0.0-2.0) 05/20/17 06:20 Neutrophils (Manual) 80 % (40-80) 05/17/17 23:45 Lymphocytes 4 % (20-50) L 05/17/17 23:45 Monocytes 4 % (2-10) 05/17/17 23:45 Eosinophils 2 % (0-5) 05/17/17 23:45 Basophils 0 % (0-3) 05/17/17 23:45 ESR 36 mm/hr (0-20) H 05/18/17 05:00 Sodium 128 mEq/L (136-145) L 05/20/17 06:20 Potassium 4.4 mEq/L (3.5-5.1) 05/20/17 06:20 Chloride 96 mEq/L (98-107) L 05/20/17 06:20 Carbon Dioxide 23.5 mEq/L (21.0-31.0) 05/20/17 06:20 Anion Gap 12.9 (7.0-16.0) 05/20/17 06:20 BUN 93 mg/dL (7-25) H* 05/20/17 06:20 Creatinine 6.9 mg/dL (0.7-1.3) H* 05/20/17 06:20 Est GFR ( Amer) TNP 05/20/17 06:20 Est GFR (Non-Af Amer) TNP 05/20/17 06:20 BUN/Creatinine Ratio 13.5 05/20/17 06:20 Glucose 446 mg/dL (70-105) H D 05/20/17 06:20 POC Glucose 215 MG/DL (70 - 105) H 05/20/17 12:23 Hemoglobin A1c % 8.4 % (4.0-6.0) H 05/17/17 23:45 Whole Bld Lactic Acid 1.72 mmol/L (0.60-1.99) 05/17/17 23:45 Calcium 9.1 mg/dL (8.6-10.3) 05/20/17 06:20 Phosphorus 3.6 mg/dL (2.5-5.0) 05/17/17 23:45 Magnesium 2.4 mg/dL (1.9-2.7) 05/18/17 05:00 Total Bilirubin 0.3 mg/dL (0.3-1.0) 05/20/17 06:20 Direct Bilirubin 0.11 mg/dL (0.0-0.2) 05/17/17 23:45 AST 16 U/L (13-39) 05/20/17 06:20 ALT 15 U/L (7-52) 05/20/17 06:20 Alkaline Phosphatase 58 U/L (34-104) 05/20/17 06:20 Troponin I 0.06 ng/mL (0.01-0.05) H 05/17/17 23:45 C-Reactive Protein 14.7 mg/dL (0.0-0.9) H 05/18/17 05:00 B-Natriuretic Peptide 287.0 pg/mL (5.0-100.0) H 05/17/17 23:45 Total Protein 6.9 gm/dL (6.0-8.3) 05/20/17 06:20 Albumin 3.0 gm/dL (4.2-5.5) L 05/20/17 06:20 Globulin 3.9 gm/dL 05/20/17 06:20 Albumin/Globulin Ratio 0.8 (1.0-1.8) L 05/20/17 06:20 TSH 0.93 uIU/ml (0.34-5.60) 05/18/17 05:00 Urine Source MIDSTREAM 05/18/17 14:30 Urine Color YELLOW 05/18/17 14:30 Urine Clarity CLEAR (CLEAR) 05/18/17 14:30 Urine pH 7.5 (4.6 - 8.0) 05/18/17 14:30 Ur Specific [place] 1.010 (1.005-1.030) 05/18/17 14:30 Urine Protein 100 mg/dL (NEGATIVE) H 05/18/17 14:30 Urine Glucose (UA) 100 mg/dL (NEGATIVE) H 05/18/17 14:30 Urine Ketones NEGATIVE mg/dL (NEGATIVE) 05/18/17 14:30 Urine Blood TRACE (NEGATIVE) 05/18/17 14:30 Urine Nitrate NEGATIVE (NEGATIVE) 05/18/17 14:30 Urine Bilirubin NEGATIVE (NEGATIVE) 05/18/17 14:30 Urine Urobilinogen 0.2 E.U./dL (0.2 - 1.0) 05/18/17 14:30 Ur Leukocyte Esterase NEGATIVE (NEGATIVE) 05/18/17 14:30 Urine RBC 2-5 /hpf (0-5) H 05/18/17 14:30 Urine WBC NONE SEEN /hpf (0-5) 05/18/17 14:30 Ur Epithelial Cells NONE SEEN /lpf (FEW) 05/18/17 14:30 Urine Bacteria NONE SEEN /hpf (NONE SEEN) 05/18/17 14:30 Random Vancomycin 11.1 ug/mL (5.0-40.0) 05/20/17 06:20 - Physical Exam Vitals and I&O: Vital Signs Temp 98.6 F 05/20/17 11:47 Pulse 81 05/20/17 11:47 Resp 18 05/20/17 11:47 BP 121/70 05/20/17 11:47 Pulse Ox 98 05/20/17 11:47 Intake & Output 05/19/17 05/20/17 05/20/17 18:59 06:59 18:59 Intake Total 163 450 Balance 163 450 Weight (lbs) 73.936 kg 73.936 kg Intake: Oral 163 450 Active Medications: Current Medications Amlodipine Besylate (Norvasc) 5 mg PO DAILY [facility] Stop: 07/18/17 08:59 Last Admin: 05/20/17 08:41 Dose: 5 mg Brimonidine Tartrate (Alphagan 0.1% Ophth Soln) 1 drop EACH EYE HS [facility] Stop: 07/17/17 20:59 Last Admin: 05/19/17 21:48 Dose: 1 drop Dextrose (D50w) 50 ml IVP PRN PRN PRN Reason: Blood Glucose less than 70 Stop: 07/17/17 03:40 Dextrose (Glutose 40%) 18.75 gm PO PRN PRN PRN Reason: Blood Glucose less than 70 Stop: 07/17/17 03:40 Famotidine (Pepcid) 40 mg PO DAILY [facility] Stop: 07/18/17 08:59 Last Admin: 05/20/17 08:40 Dose: 40 mg Gabapentin (Neurontin) 100 mg PO DAILY [facility] Stop: 07/18/17 08:59 Last Admin: 05/20/17 08:40 Dose: 100 mg Glucagon (Glucagen) 1 mg IM PRN PRN PRN Reason: Blood Glucose less than 70 Stop: 07/17/17 03:40 Hydralazine HCl (Apresoline) 25 mg PO BID [facility] Stop: 07/17/17 16:59 Last Admin: 05/20/17 08:42 Dose: Not Given Ceftriaxone Sodium 1 gm/ (Dextrose) 50 mls @ 100 mls/hr IV Q24H [facility] Stop: 07/17/17 00:59 Last Admin: 05/20/17 00:48 Dose: 100 mls/hr Insulin Aspart (Novolog Insulin Sliding Scale) 0 units SUBQ ACHS [place] PRN Reason: Protocol Stop: 07/17/17 07:29 Last Admin: 05/20/17 14:14 Dose: Not Given Isosorbide Dinitrate (Isordil) 20 mg PO TID [facility] Stop: 07/17/17 13:59 Last Admin: 05/20/17 08:40 Dose: 20 mg Metoprolol Tartrate (Lopressor) 50 mg PO BID [facility] Stop: 07/17/17 16:59 Last Admin: 05/20/17 08:39 Dose: 50 mg Miscellaneous (Vancomycin Iv Per Pharmacy) 1 ea MC PRN PRN PRN Reason: PROTOCOL Stop: 07/17/17 03:45 Simvastatin (Zocor) 20 mg PO HS [facility] PRN Reason: Protocol Stop: 07/17/17 20:59 Last Admin: 05/19/17 21:49 Dose: 20 mg General: Alert, No acute distress HEENT: Atraumatic, EOMI, Mucous membr. 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 CAD CABG Left Scapular Abscess? etio? - Plan Plan: Lab - Result Diagrams 05/20/17 06:20 05/20/17 06:20 Current Medications Amlodipine Besylate (Norvasc) 5 mg PO DAILY [facility] Stop: 07/18/17 08:59 Last Admin: 05/20/17 08:41 Dose: 5 mg Brimonidine Tartrate (Alphagan 0.1% Oph Soln) 1 drop EACH EYE HS [facility] Stop: 07/17/17 20:59 Last Admin: 05/19/17 21:48 Dose: 1 drop Dextrose (D50w) 50 ml IVP PRN PRN PRN Reason: Blood Glucose less than 70 Stop: 07/17/17 03:40 Dextrose (Glutose 40%) 18.75 gm PO PRN PRN PRN Reason: Blood Glucose less than 70 Stop: 07/17/17 03:40 Famotidine (Pepcid) 40 mg PO DAILY [facility] Stop: 07/18/17 08:59 Last Admin: 05/20/17 08:40 Dose: 40 mg Gabapentin (Neurontin) 100 mg PO DAILY [facility] Stop: 07/18/17 08:59 Last Admin: 05/20/17 08:40 Dose: 100 mg Glucagon (Glucagen) 1 mg IM PRN PRN PRN Reason: Blood Glucose less than 70 Stop: 07/17/17 03:40 Hydralazine HCl (Apresoline) 25 mg PO BID [facility] Stop: 07/17/17 16:59 Last Admin: 05/20/17 08:42 Dose: Not Given Ceftriaxone Sodium 1 gm/ (Dextrose) 50 mls @ 100 mls/hr IV Q24H [facility] Stop: 07/17/17 00:59 Last Admin: 05/20/17 00:48 Dose: 100 mls/hr Insulin Aspart (Novolog Insulin Sliding Scale) 0 units SUBQ ACHS [place] PRN Reason: Protocol Stop: 07/17/17 07:29 Last Admin: 05/20/17 14:14 Dose: Not Given Isosorbide Dinitrate (Isordil) 20 mg PO TID [facility] Stop: 07/17/17 13:59 Last Admin: 05/20/17 08:40 Dose: 20 mg Metoprolol Tartrate (Lopressor) 50 mg PO BID [facility] Stop: 07/17/17 16:59 Last Admin: 05/20/17 08:39 Dose: 50 mg Miscellaneous (Vancomycin Iv Per Pharmacy) 1 ea [facility] PRN PRN PRN Reason: PROTOCOL Stop: 07/17/17 03:45 Simvastatin (Zocor) 20 mg PO HS [facility] PRN Reason: Protocol Stop: 07/17/17 20:59 Last Admin: 05/19/17 21:49 Dose: 20 mg Lab - Result Diagrams 05/20/17 06:20 05/20/17 06:20 Still elevated WBC request surgical eval left scapular abscess continue ABx discussed w/ son @ bedside denied cloudy fluid, fever, abd pain
--- NOTE | 2017-05-20 15:09 | Infectious Disease Prog Note ---
Infectious Disease Subjective - Review of Systems Service Date: 05/20/17 Subjective: There is no new change, no fever. Infectious Disease Objective - Results Result Diagrams: 05/20/17 06:20 05/20/17 06:20 Recent Labs: Laboratory Last Values WBC 18.5 Th/cmm (4.8-10.8) H 05/20/17 06:20 RBC 3.23 Mil/cmm (3.80-5.80) L 05/20/17 06:20 Hgb 10.3 gm/dL (12-16) L 05/20/17 06:20 Hct 30.2 % (41.0-60) L 05/20/17 06:20 MCV 93.3 fl (80-99) 05/20/17 06:20 MCH 31.9 pg (27.0-31.0) H 05/20/17 06:20 MCHC Differential 34.1 pg (28.0-36.0) 05/20/17 06:20 RDW 13.7 % (11.5-20.0) 05/20/17 06:20 Plt Count 337 Th/cmm (150-400) 05/20/17 06:20 MPV 8.1 fl 05/20/17 06:20 Neutrophils % 81.7 % (40.0-80.0) H 05/20/17 06:20 Band Neutrophils % 10 % (0-10) 05/17/17 23:45 Lymphocytes % 5.7 % (20.0-50.0) L 05/20/17 06:20 Monocytes % 6.8 % (2.0-10.0) 05/20/17 06:20 Eosinophils % 5.0 % (0.0-5.0) 05/20/17 06:20 Basophils % 0.8 % (0.0-2.0) 05/20/17 06:20 Neutrophils (Manual) 80 % (40-80) 05/17/17 23:45 Lymphocytes 4 % (20-50) L 05/17/17 23:45 Monocytes 4 % (2-10) 05/17/17 23:45 Eosinophils 2 % (0-5) 05/17/17 23:45 Basophils 0 % (0-3) 05/17/17 23:45 ESR 36 mm/hr (0-20) H 05/18/17 05:00 Sodium 128 mEq/L (136-145) L 05/20/17 06:20 Potassium 4.4 mEq/L (3.5-5.1) 05/20/17 06:20 Chloride 96 mEq/L (98-107) L 05/20/17 06:20 Carbon Dioxide 23.5 mEq/L (21.0-31.0) 05/20/17 06:20 Anion Gap 12.9 (7.0-16.0) 05/20/17 06:20 BUN 93 mg/dL (7-25) H* 05/20/17 06:20 Creatinine 6.9 mg/dL (0.7-1.3) H* 05/20/17 06:20 Est GFR ( Amer) TNP 05/20/17 06:20 Est GFR (Non-Af Amer) TNP 05/20/17 06:20 BUN/Creatinine Ratio 13.5 05/20/17 06:20 Glucose 446 mg/dL (70-105) H D 05/20/17 06:20 POC Glucose 215 MG/DL (70 - 105) H 05/20/17 12:23 Hemoglobin A1c % 8.4 % (4.0-6.0) H 05/17/17 23:45 Whole Bld Lactic Acid 1.72 mmol/L (0.60-1.99) 05/17/17 23:45 Calcium 9.1 mg/dL (8.6-10.3) 05/20/17 06:20 Phosphorus 3.6 mg/dL (2.5-5.0) 05/17/17 23:45 Magnesium 2.4 mg/dL (1.9-2.7) 05/18/17 05:00 Total Bilirubin 0.3 mg/dL (0.3-1.0) 05/20/17 06:20 Direct Bilirubin 0.11 mg/dL (0.0-0.2) 05/17/17 23:45 AST 16 U/L (13-39) 05/20/17 06:20 ALT 15 U/L (7-52) 05/20/17 06:20 Alkaline Phosphatase 58 U/L (34-104) 05/20/17 06:20 Troponin I 0.06 ng/mL (0.01-0.05) H 05/17/17 23:45 C-Reactive Protein 14.7 mg/dL (0.0-0.9) H 05/18/17 05:00 B-Natriuretic Peptide 287.0 pg/mL (5.0-100.0) H 05/17/17 23:45 Total Protein 6.9 gm/dL (6.0-8.3) 05/20/17 06:20 Albumin 3.0 gm/dL (4.2-5.5) L 05/20/17 06:20 Globulin 3.9 gm/dL 05/20/17 06:20 Albumin/Globulin Ratio 0.8 (1.0-1.8) L 05/20/17 06:20 TSH 0.93 uIU/ml (0.34-5.60) 05/18/17 05:00 Urine Source MIDSTREAM 05/18/17 14:30 Urine Color YELLOW 05/18/17 14:30 Urine Clarity CLEAR (CLEAR) 05/18/17 14:30 Urine pH 7.5 (4.6 - 8.0) 05/18/17 14:30 Ur Specific [place] 1.010 (1.005-1.030) 05/18/17 14:30 Urine Protein 100 mg/dL (NEGATIVE) H 05/18/17 14:30 Urine Glucose (UA) 100 mg/dL (NEGATIVE) H 05/18/17 14:30 Urine Ketones NEGATIVE mg/dL (NEGATIVE) 05/18/17 14:30 Urine Blood TRACE (NEGATIVE) 05/18/17 14:30 Urine Nitrate NEGATIVE (NEGATIVE) 05/18/17 14:30 Urine Bilirubin NEGATIVE (NEGATIVE) 05/18/17 14:30 Urine Urobilinogen 0.2 E.U./dL (0.2 - 1.0) 05/18/17 14:30 Ur Leukocyte Esterase NEGATIVE (NEGATIVE) 05/18/17 14:30 Urine RBC 2-5 /hpf (0-5) H 05/18/17 14:30 Urine WBC NONE SEEN /hpf (0-5) 05/18/17 14:30 Ur Epithelial Cells NONE SEEN /lpf (FEW) 05/18/17 14:30 Urine Bacteria NONE SEEN /hpf (NONE SEEN) 05/18/17 14:30 Random Vancomycin 11.1 ug/mL (5.0-40.0) 05/20/17 06:20 - Physical Exam Vitals and I&O: Vital Signs Temp 98.6 F 05/20/17 11:47 Pulse 81 05/20/17 11:47 Resp 18 05/20/17 11:47 BP 121/70 05/20/17 11:47 Pulse Ox 98 05/20/17 11:47 Intake & Output 05/19/17 05/20/17 05/20/17 18:59 06:59 18:59 Intake Total 163 450 Balance 163 450 Weight (lbs) 73.936 kg 73.936 kg Intake: Oral 163 450 Active Medications: Current Medications Amlodipine Besylate (Norvasc) 5 mg PO DAILY [facility] Stop: 07/18/17 08:59 Last Admin: 05/20/17 08:41 Dose: 5 mg Brimonidine Tartrate (Alphagan 0.1% Oph Soln) 1 drop EACH EYE HS [facility] Stop: 07/17/17 20:59 Last Admin: 05/19/17 21:48 Dose: 1 drop Dextrose (D50w) 50 ml IVP PRN PRN PRN Reason: Blood Glucose less than 70 Stop: 07/17/17 03:40 Dextrose (Glutose 40%) 18.75 gm PO PRN PRN PRN Reason: Blood Glucose less than 70 Stop: 07/17/17 03:40 Famotidine (Pepcid) 40 mg PO DAILY [facility] Stop: 07/18/17 08:59 Last Admin: 05/20/17 08:40 Dose: 40 mg Gabapentin (Neurontin) 100 mg PO DAILY [facility] Stop: 07/18/17 08:59 Last Admin: 05/20/17 08:40 Dose: 100 mg Glucagon (Glucagen) 1 mg IM PRN PRN PRN Reason: Blood Glucose less than 70 Stop: 07/17/17 03:40 Hydralazine HCl (Apresoline) 25 mg PO BID [facility] Stop: 07/17/17 16:59 Last Admin: 05/20/17 08:42 Dose: Not Given Ceftriaxone Sodium 1 gm/ (Dextrose) 50 mls @ 100 mls/hr IV Q24H [facility] Stop: 07/17/17 00:59 Last Admin: 05/20/17 00:48 Dose: 100 mls/hr Insulin Aspart (Novolog Insulin Sliding Scale) 0 units SUBQ ACHS [place] PRN Reason: Protocol Stop: 07/17/17 07:29 Last Admin: 05/20/17 14:14 Dose: Not Given Isosorbide Dinitrate (Isordil) 20 mg PO TID [facility] Stop: 07/17/17 13:59 Last Admin: 05/20/17 08:40 Dose: 20 mg Metoprolol Tartrate (Lopressor) 50 mg PO BID [facility] Stop: 07/17/17 16:59 Last Admin: 05/20/17 08:39 Dose: 50 mg Miscellaneous (Vancomycin Iv Per Pharmacy) 1 ea [facility] PRN PRN PRN Reason: PROTOCOL Stop: 07/17/17 03:45 Simvastatin (Zocor) 20 mg PO HS [place] PRN Reason: Protocol Stop: 07/17/17 20:59 Last Admin: 05/19/17 21:49 Dose: 20 mg Temazepam (Restoril) 15 mg PO HS PRN; Protocol PRN Reason: Insomnia Stop: 07/19/17 14:39 Tramadol HCl (Ultram) 50 mg PO Q4HR PRN PRN Reason: pain management Stop: 07/19/17 14:16 Tramadol HCl (Ultram) 50 mg PO NOW ONE Stop: 05/20/17 14:21 General: no acute distress, well developed, well nourished HEENT: atraumatic, normocephalic, PERRLA, EOMI Neck: supple, no thyromegaly Cardiovascular: S1S2, regular Lungs: clear to auscultation bilaterally, clear to percussion Abdomen: soft, other (PD cath in place,), no tender, no distended Extremities: no cyanosis, no clubbing, no edema Neurological: awake, alert, oriented Skin: other (back there is swelling on the left upper back with flucuence.) Infectious Disease Assmt/Plan - Assessment Assessment: 1. Leukocytosis. r/o abscess versus hematoma of the left upper back. 2. Right leg wound. 3. Right arm cellulitis, improved. 4. Chronic kidney disease stage 5, on peritoneal dialysis. 5. Diabetes mellitus type 2. 6. Hypertension. - Plan Plan: Continue Rocephin, and vancomycin. Wound care. may get peritoneal fluid study. ask for Dr Payton surgical consult.
[2017-05-20] MEDS: Venelex 60gm Tube TP SCH (17:30)
[2017-05-21] MEDS: Venelex 60gm Tube TP SCH (09:56)
[2017-05-21] MEDS: INSULIN ASPART SLIDING SCALE 100 UNITS/ML UNIT SUBQ SCH ×4 (10:14→21:24)
[2017-05-21 10:45] LABS: % BASOPHILS 0.3 % (0.0-2.0); % EOSINOPHILS 4.6 % (0.0-5.0); % LYMPHOCYTES 6.8 % (20.0-50.0); % MONOCYTES 5.1 % (2.0-10.0); % NEUTROPHILS 83.2 % (40.0-80.0); BASOPHILE ABSOLUTE 0.1 Th/cumm (0-0.2); EOSINOPHILE ABSOLUTE 0.9 Th/cmm (0.1-0.4); HEMATOCRIT 29.5 % (41.0-60); LYMPHOCYTE ABSOLUTE 1.3 Th/cmm (1.5-3.0); MEAN CELL VOLUME 93.9 fl (80-99); MEAN CORPUSCULAR HEMOGLOBIN 31.7 pg (27.0-31.0); MEAN CORPUSCULAR HGB CONC 33.8 pg (28.0-36.0); MEAN PLATELET VOLUME 7.7 fl; NEUTROPHILE ABSOLUTE 15.8 Th/cmm (1.8-8.0); PLATELET COUNT 372 Th/cmm (150-400); RED BLOOD COUNT 3.14 Mil/cmm (3.80-5.80); RED CELL DISTRIBUTION WIDTH 13.6 % (11.5-20.0)
[2017-05-21 10:51] LABS: WHITE BLOOD COUNT 19.1 Th/cmm (4.8-10.8)
[2017-05-21 11:02] LABS: INR 0.99 (0.5-1.4); PROTHROMBIN TIME (TEST) 10.3 SECONDS (9.5-11.5)
[2017-05-21 11:07] LABS: ANION GAP 16.7 (7.0-16.0); CALCIUM SERUM 8.9 mg/dL (8.6-10.3); CARBON DIOXIDE 23.6 mEq/L (21.0-31.0); CHLORIDE 96 mEq/L (98-107); GLUCOSE 357 mg/dL (70-105); POTASSIUM SERUM 4.3 mEq/L (3.5-5.1); SODIUM SERUM 132 mEq/L (136-145)
[2017-05-21 11:18] LABS: BUN - UREA NITROGEN 86 mg/dL (7-25)
--- NOTE | 2017-05-21 11:18 | History & Physical ---
ADMIT DATE: 05/21/2017 SURGICAL CONSULTATION REFERRING PHYSICIAN: Dr. Steve. REASON FOR CONSULTATION: Right leg ulcer and left scapular mass. Thank you for referring this patient to me. HISTORY OF PRESENT ILLNESS: This is a 77-year-old male who has end-stage renal disease, treated via peritoneal dialysis for about 5 years. He had coronary bypass graft, triple, with vein harvest in the right lower extremity. He started having nonhealing ulcer of the right mid leg, medial aspect, for the last several months and also recurrent fluctuating mass in the left scapular area for the last several months. LABORATORY STUDIES: WBC is 18,500. BUN is 93 with creatinine of 6.9, glucose of 446. Liver function tests are normal. He underwent upper extremity ultrasound study, which showed no evidence of DVT. Chest x-ray: Increased interstitial lung markings, chronic and nonspecific. The wrist x-ray shows slight irregularity of the distal radius, likely old trauma. PHYSICAL EXAMINATION: GENERAL: Now, the patient is well oriented. ABDOMEN: He has a peritoneal dialysis catheter in the abdomen. SKIN: There is ulceration in the right mid leg medial aspect, which is rather shallow with surrounding cellulitis. There is a large fluctuant mass in the left scapular area measuring about 12 cm across, which is minimally tender. PLAN: A Doppler study is not complete and we will repeat this to check on the peripheral vascular disease and DVT that might involve the lower extremity. The patient will need incision and drainage of the abscess in the left scapular area. JOB# [id number]
[2017-05-21 11:23] LABS: CREATININE - SERUM 6.4 mg/dL (0.7-1.3)
[2017-05-21 11:40] LABS: BODY FLUID SOURCE PERITONEAL
[2017-05-21 11:41] LABS: BF APPEARANCE CLEAR; BF COLOR COLORLESS; BF RBC 5 /cumm; BF WBC 39 /cumm
[2017-05-21 11:42] LABS: BF MONOCYTES 2 %
--- NOTE | 2017-05-21 13:23 | General Progress Note ---
Subjective - Review of Systems Service Date: 05/21/17 Subjective: alert, right thumb pain, denied abd pain Objective - Results Result Diagrams: 05/21/17 10:40 05/21/17 10:40 Recent Labs: Laboratory Last Values WBC 19.1 Th/cmm (4.8-10.8) H 05/21/17 10:40 RBC 3.14 Mil/cmm (3.80-5.80) L 05/21/17 10:40 Hgb 10.0 gm/dL (12-16) L 05/21/17 10:40 Hct 29.5 % (41.0-60) L 05/21/17 10:40 MCV 93.9 fl (80-99) 05/21/17 10:40 MCH 31.7 pg (27.0-31.0) H 05/21/17 10:40 MCHC Differential 33.8 pg (28.0-36.0) 05/21/17 10:40 RDW 13.6 % (11.5-20.0) 05/21/17 10:40 Plt Count 372 Th/cmm (150-400) 05/21/17 10:40 MPV 7.7 fl 05/21/17 10:40 Neutrophils % 83.2 % (40.0-80.0) H 05/21/17 10:40 Band Neutrophils % 10 % (0-10) 05/17/17 23:45 Lymphocytes % 6.8 % (20.0-50.0) L 05/21/17 10:40 Monocytes % 5.1 % (2.0-10.0) 05/21/17 10:40 Eosinophils % 4.6 % (0.0-5.0) 05/21/17 10:40 Basophils % 0.3 % (0.0-2.0) 05/21/17 10:40 Neutrophils (Manual) 80 % (40-80) 05/17/17 23:45 Lymphocytes 4 % (20-50) L 05/17/17 23:45 Monocytes 4 % (2-10) 05/17/17 23:45 Eosinophils 2 % (0-5) 05/17/17 23:45 Basophils 0 % (0-3) 05/17/17 23:45 ESR 86 mm/hr (0-20) H 05/21/17 10:40 PT 10.3 SECONDS (9.5-11.5) 05/21/17 10:40 INR 0.99 (0.5-1.4) 05/21/17 10:40 PTT (Actin FS) 28.8 SECONDS (26.0-38.0) 05/21/17 10:40 Sodium 132 mEq/L (136-145) L 05/21/17 10:40 Potassium 4.3 mEq/L (3.5-5.1) 05/21/17 10:40 Chloride 96 mEq/L (98-107) L 05/21/17 10:40 Carbon Dioxide 23.6 mEq/L (21.0-31.0) 05/21/17 10:40 Anion Gap 16.7 (7.0-16.0) H 05/21/17 10:40 BUN 86 mg/dL (7-25) H* 05/21/17 10:40 Creatinine 6.4 mg/dL (0.7-1.3) H* 05/21/17 10:40 Est GFR ( Amer) TNP 05/21/17 10:40 Est GFR (Non-Af Amer) TNP 05/21/17 10:40 BUN/Creatinine Ratio 13.4 05/21/17 10:40 Glucose 357 mg/dL (70-105) H 05/21/17 10:40 POC Glucose 359 MG/DL (70 - 105) H 05/21/17 12:07 Hemoglobin A1c % 8.4 % (4.0-6.0) H 05/17/17 23:45 Whole Bld Lactic Acid 1.72 mmol/L (0.60-1.99) 05/17/17 23:45 Calcium 8.9 mg/dL (8.6-10.3) 05/21/17 10:40 Phosphorus 3.6 mg/dL (2.5-5.0) 05/17/17 23:45 Magnesium 2.4 mg/dL (1.9-2.7) 05/18/17 05:00 Total Bilirubin 0.3 mg/dL (0.3-1.0) 05/20/17 06:20 Direct Bilirubin 0.11 mg/dL (0.0-0.2) 05/17/17 23:45 AST 16 U/L (13-39) 05/20/17 06:20 ALT 15 U/L (7-52) 05/20/17 06:20 Alkaline Phosphatase 58 U/L (34-104) 05/20/17 06:20 Troponin I 0.06 ng/mL (0.01-0.05) H 05/17/17 23:45 C-Reactive Protein 14.7 mg/dL (0.0-0.9) H 05/18/17 05:00 B-Natriuretic Peptide 287.0 pg/mL (5.0-100.0) H 05/17/17 23:45 Total Protein 6.9 gm/dL (6.0-8.3) 05/20/17 06:20 Albumin 3.0 gm/dL (4.2-5.5) L 05/20/17 06:20 Globulin 3.9 gm/dL 05/20/17 06:20 Albumin/Globulin Ratio 0.8 (1.0-1.8) L 05/20/17 06:20 TSH 0.93 uIU/ml (0.34-5.60) 05/18/17 05:00 Urine Source MIDSTREAM 05/18/17 14:30 Urine Color YELLOW 05/18/17 14:30 Urine Clarity CLEAR (CLEAR) 05/18/17 14:30 Urine pH 7.5 (4.6 - 8.0) 05/18/17 14:30 Ur Specific [place] 1.010 (1.005-1.030) 05/18/17 14:30 Urine Protein 100 mg/dL (NEGATIVE) H 05/18/17 14:30 Urine Glucose (UA) 100 mg/dL (NEGATIVE) H 05/18/17 14:30 Urine Ketones NEGATIVE mg/dL (NEGATIVE) 05/18/17 14:30 Urine Blood TRACE (NEGATIVE) 05/18/17 14:30 Urine Nitrate NEGATIVE (NEGATIVE) 05/18/17 14:30 Urine Bilirubin NEGATIVE (NEGATIVE) 05/18/17 14:30 Urine Urobilinogen 0.2 E.U./dL (0.2 - 1.0) 05/18/17 14:30 Ur Leukocyte Esterase NEGATIVE (NEGATIVE) 05/18/17 14:30 Urine RBC 2-5 /hpf (0-5) H 05/18/17 14:30 Urine WBC NONE SEEN /hpf (0-5) 05/18/17 14:30 Ur Epithelial Cells NONE SEEN /lpf (FEW) 05/18/17 14:30 Urine Bacteria NONE SEEN /hpf (NONE SEEN) 05/18/17 14:30 Fluid Source PERITONEAL 05/18/17 22:00 Fluid Color COLORLESS 05/18/17 22:00 Fluid Appearance CLEAR 05/18/17 22:00 Fluid WBC 39 /cumm 05/18/17 22:00 Fluid RBC 5 /cumm 05/18/17 22:00 Fluid Neutrophils 76 % 05/18/17 22:00 Fluid Lymphocytes 22 % 05/18/17 22:00 Fluid Monocytes 2 % 05/18/17 22:00 Fluid Plasma Cells FEW 05/18/17 22:00 Body Fluid Clot NO 05/18/17 22:00 Fluid Total Protein < 3.0 g/dL 05/20/17 22:00 Fluid Amylase < 10 U/L 05/20/17 22:00 Random Vancomycin 11.1 ug/mL (5.0-40.0) 05/20/17 06:20 - Physical Exam Vitals and I&O: Vital Signs Temp 98.2 F 05/21/17 03:00 Pulse 66 05/21/17 10:57 Resp 20 05/21/17 03:00 BP 99/49 05/21/17 10:57 Pulse Ox 98 05/21/17 03:00 Intake & Output 05/20/17 05/21/17 05/21/17 18:59 06:59 18:59 Intake Total 1280 Balance 1280 Weight (lbs) 73.936 kg Intake: Oral 1280 Other: # Voids 1 Active Medications: Current Medications Amlodipine Besylate (Norvasc) 5 mg PO DAILY [place] Stop: 07/18/17 08:59 Last Admin: 05/21/17 09:57 Dose: 5 mg Brimonidine Tartrate (Alphagan 0.1% Ophth Soln) 1 drop EACH EYE HS [place] Stop: 07/17/17 20:59 Last Admin: 05/20/17 22:50 Dose: 1 drop [place] Oil/Brazilian Balsam/Trypsin (Venelex) 1 appl TP DAILY [place] Stop: 07/19/17 16:59 Last Admin: 05/21/17 09:56 Dose: 1 appl Dextrose (D50w) 50 ml IVP PRN PRN PRN Reason: Blood Glucose less than 70 Stop: 07/17/17 03:40 Dextrose (Glutose 40%) 18.75 gm PO PRN PRN PRN Reason: Blood Glucose less than 70 Stop: 07/17/17 03:40 Famotidine (Pepcid) 40 mg PO DAILY [facility] Stop: 07/18/17 08:59 Last Admin: 05/21/17 09:57 Dose: 40 mg Gabapentin (Neurontin) 100 mg PO DAILY [facility] Stop: 07/18/17 08:59 Last Admin: 05/21/17 09:57 Dose: 100 mg Glucagon (Glucagen) 1 mg IM PRN PRN PRN Reason: Blood Glucose less than 70 Stop: 07/17/17 03:40 Hydralazine HCl (Apresoline) 25 mg PO BID [facility] Stop: 07/17/17 16:59 Last Admin: 05/21/17 09:57 Dose: 25 mg Ceftriaxone Sodium 1 gm/ (Dextrose) 50 mls @ 100 mls/hr IV Q24H [facility] Stop: 07/17/17 00:59 Last Admin: 05/21/17 01:31 Dose: 100 mls/hr Insulin Aspart (Novolog Insulin Sliding Scale) 0 units SUBQ ACHS [place] PRN Reason: Protocol Stop: 07/17/17 07:29 Last Admin: 05/21/17 12:38 Dose: 10 units Isosorbide Dinitrate (Isordil) 20 mg PO TID [facility] Stop: 07/17/17 13:59 Last Admin: 05/21/17 09:58 Dose: 20 mg Metoprolol Tartrate (Lopressor) 50 mg PO BID [facility] Stop: 07/17/17 16:59 Last Admin: 05/21/17 09:58 Dose: 50 mg Miscellaneous (Vancomycin Iv Per Pharmacy) 1 ea MC PRN PRN PRN Reason: PROTOCOL Stop: 07/17/17 03:45 Miscellaneous (Prazosin Hcl [Prazosin Hcl]) 2 mg PO DAILY [facility] Stop: 07/21/17 08:59 Simvastatin (Zocor) 20 mg PO HS [place] PRN Reason: Protocol Stop: 07/17/17 20:59 Last Admin: 05/20/17 22:51 Dose: 20 mg Temazepam (Restoril) 15 mg PO HS PRN; Protocol PRN Reason: Insomnia Stop: 07/19/17 20:59 Tramadol HCl (Ultram) 50 mg PO Q4H PRN PRN Reason: pain management Stop: 07/19/17 14:16 Last Admin: 05/21/17 10:59 Dose: 50 mg General: Alert, No acute distress HEENT: Atraumatic, EOMI, Mucous membr. 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 CAD CABG Left Scapular Abscess? etio? - Plan Plan: Lab - Result Diagrams 05/20/17 06:20 05/20/17 06:20 Current Medications Amlodipine Besylate (Norvasc) 5 mg PO DAILY [facility] Stop: 07/18/17 08:59 Last Admin: 05/20/17 08:41 Dose: 5 mg Brimonidine Tartrate (Alphagan 0.1% Ophth Soln) 1 drop EACH EYE HS [facility] Stop: 07/17/17 20:59 Last Admin: 05/19/17 21:48 Dose: 1 drop Dextrose (D50w) 50 ml IVP PRN PRN PRN Reason: Blood Glucose less than 70 Stop: 07/17/17 03:40 Dextrose (Glutose 40%) 18.75 gm PO PRN PRN PRN Reason: Blood Glucose less than 70 Stop: 07/17/17 03:40 Famotidine (Pepcid) 40 mg PO DAILY [facility] Stop: 07/18/17 08:59 Last Admin: 05/20/17 08:40 Dose: 40 mg Gabapentin (Neurontin) 100 mg PO DAILY [facility] Stop: 07/18/17 08:59 Last Admin: 05/20/17 08:40 Dose: 100 mg Glucagon (Glucagen) 1 mg IM PRN PRN PRN Reason: Blood Glucose less than 70 Stop: 07/17/17 03:40 Hydralazine HCl (Apresoline) 25 mg PO BID [facility] Stop: 07/17/17 16:59 Last Admin: 05/20/17 08:42 Dose: Not Given Ceftriaxone Sodium 1 gm/ (Dextrose) 50 mls @ 100 mls/hr IV Q24H [facility] Stop: 07/17/17 00:59 Last Admin: 05/20/17 00:48 Dose: 100 mls/hr Insulin Aspart (Novolog Insulin Sliding Scale) 0 units SUBQ ACHS [place] PRN Reason: Protocol Stop: 07/17/17 07:29 Last Admin: 05/20/17 14:14 Dose: Not Given Isosorbide Dinitrate (Isordil) 20 mg PO TID [place] Stop: 07/17/17 13:59 Last Admin: 05/20/17 08:40 Dose: 20 mg Metoprolol Tartrate (Lopressor) 50 mg PO BID [facility] Stop: 07/17/17 16:59 Last Admin: 05/20/17 08:39 Dose: 50 mg Miscellaneous (Vancomycin Iv Per Pharmacy) 1 ea MC PRN PRN PRN Reason: PROTOCOL Stop: 07/17/17 03:45 Simvastatin (Zocor) 20 mg PO HS [place] PRN Reason: Protocol Stop: 07/17/17 20:59 Last Admin: 05/19/17 21:49 Dose: 20 mg Lab - Result Diagrams 05/21/17 10:40 05/21/17 10:40 Still elevated WBC @ 19.1 request surgical eval left scapular abscess continue ABx discussed w/ son @ bedside denied cloudy fluid, fever, abd pain switched to daily PD exchanges Nutritional Asmnt/Malnutr-PDOC - Dietary Evaluation Malnutrition Findings (Please click <Entered> for more info): Nutritional Asmnt/Malnutrition Start: 05/20/17 15: 35 Text: Status: Complete Freq: Document 05/20/17 15:35 LCHENG (Rec: 05/20/17 15:52 LCHENG [email or web address]) Nutritional Asmnt/Malnutrition Patient General Information Nutritional Screening High Risk Consult Diagnosis right thumb cellulitis Pertinent Medical Hx/Surgical Hx CAD, CHF, HTN, weakness, chronic renal insuff, benign prostatic enlarg, on PD, DM, ulcer Subjective Information Consult received for DM, non- healing wounds, open wounds. Pt seen resting in bed at time of visit. Per EMR, PO intake 50-100%. Pt on peritoneal dialysis noted. Current Diet Order/ Nutrition Support ccho, low sodium Pertinent Medications D50w, novolog Pertinent Labs 05/20 Na 128, Cl 96, BUN 93, Cr 6.9, GLucose 446, POC 215 Nutritional Hx/Data Height 1.73 m Height (Calculated Centimeters) 172.7 Current Weight (lbs) 73.936 kg Weight (Calculated Kilograms) 73.9 Weight (Calculated Grams) 96117.6 Body Mass Index (BMI) 24.7 GI Symptoms GI Symptoms None Last BM 05/19 Difficult in: None Skin Integrity/Comment: reddened to left shoulder back laceration ulceration to right anterior leg Current %PO Good (75-100%) Estimated Nutritional Goals BEE in Kcals: Using Current wt Calories/Kcals/Kg 25-30 Kcals Calculated 4333-6186 Protein: Using Current wt Protein g/k-1.2 Protein Calculated 74-89 Fluid: ml 1850-2220ml (1ml/kcal) Nutritional Problem 1. Problem Problem altered nutrition related lab values Etiology hx of chronic renal insuff, DM Signs/Symptoms: BUN 93, Cr 6.9, GLucose 446, POC 215 Malnutrition Alert Protein-Calorie Malnutrition N/A Is there a minimum of two criteria No selected? Query Text:Check all the applicable criteria. A minimum of two criteria are recommended for diagnosis of either severe or non-severe malnutrition. Intervention/Recommendation Comments 1. Continue with current diet as ordered. Recommend Arginaid 1pk daily to heal wound healing 2. MD to consider vit c and zinc to help wound healing 3. Monitor PO intake, wt, labs and skin integrity 4. F/U as moderate risk in 3-5 days, 05/23-05/25. PO check Expected Outcomes/Goals Expected Outcomes/Goals 1. PO intake to meet at least 75% of nutritional needs. 2. Wt stability, skin to remain intact, labs to approach WNL.
--- NOTE | 2017-05-21 13:25 | Diagnostic Imaging Report ---
Bilateral lower extremity Doppler arterial ultrasound exam HISTORY: Pain, peripheral vascular disease Sonographic sector images were obtained through the arterial systems of both legs. Associated Doppler data was obtained. The exam of the right leg demonstrates triphasic waveforms within the common femoral and proximal portion of the right superficial femoral artery. Triphasic waveforms noted within the popliteal and anterior tibial arteries. Biphasic waveforms are noted within the mid and distal portion of the right superficial femoral artery. Abnormal monophasic waveforms noted in the right posterior tibial and dorsalis pedis arteries. There is an increase in velocity noted within the distal superficial femoral artery and popliteal artery regions. Sonographic images demonstrate mild to moderate diffuse atherosclerotic plaque. The right ankle-brachial index is normal (1.03). The exam of the left leg demonstrates triphasic waveforms within the common femoral and superficial femoral arteries. Abnormal monophasic waveforms are noted within the left popliteal, anterior tibial, posterior tibial, and dorsalis pedis arteries. There is an abnormal decrease in velocity from the popliteal down through the dorsalis pedis artery region. The ankle-brachial index equals 0.9. Sonographic images demonstrate moderate diffuse atherosclerotic plaque throughout the arterial system. Findings appear most pronounced below the knee. IMPRESSION: 1. Moderate to severe diffuse bilateral atherosclerotic changes somewhat more pronounced below the knee particularly on the left side. A CT angiographic study would provide additional detail if needed.
--- NOTE | 2017-05-21 13:26 | Diagnostic Imaging Report ---
Right upper extremity Doppler arterial ultrasound exam HISTORY: Swelling Sonographic sector images were obtained through the arterial system of the right arm. Associated Doppler data was obtained. The exam demonstrates patency through the right subclavian, axillary, brachial, radial, and ulnar arteries. No significant focal narrowing or occlusion identified. IMPRESSION: 1. No significant focal narrowing or occlusion identified within the arterial system of the right arm.
--- NOTE | 2017-05-21 13:27 | Diagnostic Imaging Report ---
Bilateral lower extremity Doppler venous ultrasound exam HISTORY: Pain/swelling Sonographic sector images were obtained through the deep venous systems of both legs. Associated Doppler data was obtained. The exam demonstrates patency of the common femoral, superficial femoral, popliteal, and posterior tibial veins bilaterally. Specifically, no thrombus is seen. There are normal compressibility and augmentation responses. IMPRESSION: Negative exam for deep vein thrombophlebitis.
--- NOTE | 2017-05-21 15:02 | Diagnostic Imaging Report ---
Nuclear medicine, bone scan bilateral lower extremities HISTORY: Peripheral arterial disease right leg COMPARISON: None Technique/procedure: 21.8 millicuries of technetium 99 labeled MDP was administered intravenously and flow, blood pool, and delayed images of the bilateral lower x-rays were obtained. FINDINGS: Slight increased uptake of the left proximal tibia is seen on the flow images. Slight increased uptake is also seen on blood pool images. Mild nonspecific increased uptake of the bilateral ankle joints is also noted. There is also mild increased uptake along the bilateral proximal tibial regions on the delayed images. IMPRESSION: Slight increased uptake of the left proximal tibia on the flow, blood pool, and delayed images. If there is clinical concern for osteomyelitis in this region, MRI is recommended for further assessment. Additional mild nonspecific delayed uptake of the proximal right tibia.
[2017-05-22 07:25] LABS: % BASOPHILS 0.6 % (0.0-2.0); % EOSINOPHILS 4.8 % (0.0-5.0); % LYMPHOCYTES 8.1 % (20.0-50.0); % MONOCYTES 6.7 % (2.0-10.0); % NEUTROPHILS 79.8 % (40.0-80.0); BASOPHILE ABSOLUTE 0.1 Th/cumm (0-0.2); EOSINOPHILE ABSOLUTE 0.9 Th/cmm (0.1-0.4); HEMATOCRIT 27.6 % (41.0-60); HEMOGLOBIN 9.2 gm/dL (12-16); LYMPHOCYTE ABSOLUTE 1.5 Th/cmm (1.5-3.0); MEAN CELL VOLUME 94.6 fl (80-99); MEAN CORPUSCULAR HEMOGLOBIN 31.6 pg (27.0-31.0); MEAN CORPUSCULAR HGB CONC 33.4 pg (28.0-36.0); MEAN PLATELET VOLUME 7.8 fl; MONOCYTE ABSOLUTE 1.2 Th/cmm (0.3-1.0); NEUTROPHILE ABSOLUTE 14.5 Th/cmm (1.8-8.0); PLATELET COUNT 364 Th/cmm (150-400); RED BLOOD COUNT 2.92 Mil/cmm (3.80-5.80); RED CELL DISTRIBUTION WIDTH 13.5 % (11.5-20.0)
[2017-05-22 07:32] LABS: WHITE BLOOD COUNT 18.2 Th/cmm (4.8-10.8)
[2017-05-22] MEDS ORDERED: Venelex 60gm Tube TP ONE (07:35)
[2017-05-22 08:02] LABS: CALCIUM SERUM 8.5 mg/dL (8.6-10.3); CARBON DIOXIDE 21.9 mEq/L (21.0-31.0); CHLORIDE 95 mEq/L (98-107); GLUCOSE 277 mg/dL (70-105); MAGNESIUM 2.3 mg/dL (1.9-2.7); POTASSIUM SERUM 3.9 mEq/L (3.5-5.1); SODIUM SERUM 125 mEq/L (136-145)
[2017-05-22] MEDS: INSULIN ASPART SLIDING SCALE 100 UNITS/ML UNIT SUBQ SCH ×4 (08:04→21:13)
[2017-05-22 08:16] LABS: BUN - UREA NITROGEN 80 mg/dL (7-25)
[2017-05-22 08:17] LABS: CREATININE - SERUM 6.2 mg/dL (0.7-1.3)
[2017-05-22] MEDS: Venelex 60gm Tube TP SCH (10:20)
[2017-05-22] MEDS: Aspirin 81mg Chewable Tab PO SCH (10:23)
--- NOTE | 2017-05-22 14:51 | General Progress Note ---
Subjective - Review of Systems Service Date: 05/22/17 Subjective: sleeping, comfortable Objective - Results Result Diagrams: 05/22/17 06:47 05/22/17 06:47 Recent Labs: Laboratory Last Values WBC 18.2 Th/cmm (4.8-10.8) H 05/22/17 06:47 RBC 2.92 Mil/cmm (3.80-5.80) L 05/22/17 06:47 Hgb 9.2 gm/dL (12-16) L 05/22/17 06:47 Hct 27.6 % (41.0-60) L 05/22/17 06:47 MCV 94.6 fl (80-99) 05/22/17 06:47 MCH 31.6 pg (27.0-31.0) H 05/22/17 06:47 MCHC Differential 33.4 pg (28.0-36.0) 05/22/17 06:47 RDW 13.5 % (11.5-20.0) 05/22/17 06:47 Plt Count 364 Th/cmm (150-400) 05/22/17 06:47 MPV 7.8 fl 05/22/17 06:47 Neutrophils % 79.8 % (40.0-80.0) 05/22/17 06:47 Band Neutrophils % 10 % (0-10) 05/17/17 23:45 Lymphocytes % 8.1 % (20.0-50.0) L 05/22/17 06:47 Monocytes % 6.7 % (2.0-10.0) 05/22/17 06:47 Eosinophils % 4.8 % (0.0-5.0) 05/22/17 06:47 Basophils % 0.6 % (0.0-2.0) 05/22/17 06:47 Neutrophils (Manual) 80 % (40-80) 05/17/17 23:45 Lymphocytes 4 % (20-50) L 05/17/17 23:45 Monocytes 4 % (2-10) 05/17/17 23:45 Eosinophils 2 % (0-5) 05/17/17 23:45 Basophils 0 % (0-3) 05/17/17 23:45 ESR 86 mm/hr (0-20) H 05/21/17 10:40 PT 10.3 SECONDS (9.5-11.5) 05/21/17 10:40 INR 0.99 (0.5-1.4) 05/21/17 10:40 PTT (Actin FS) 28.8 SECONDS (26.0-38.0) 05/21/17 10:40 Sodium 125 mEq/L (136-145) L 05/22/17 06:47 Potassium 3.9 mEq/L (3.5-5.1) 05/22/17 06:47 Chloride 95 mEq/L (98-107) L 05/22/17 06:47 Carbon Dioxide 21.9 mEq/L (21.0-31.0) 05/22/17 06:47 Anion Gap 12.0 (7.0-16.0) 05/22/17 06:47 BUN 80 mg/dL (7-25) H 05/22/17 06:47 Creatinine 6.2 mg/dL (0.7-1.3) H* 05/22/17 06:47 Est GFR ( Amer) TNP 05/22/17 06:47 Est GFR (Non-Af Amer) TNP 05/22/17 06:47 BUN/Creatinine Ratio 12.9 05/22/17 06:47 Glucose 277 mg/dL (70-105) H 05/22/17 06:47 POC Glucose 298 MG/DL (70 - 105) H 05/22/17 11:49 Hemoglobin A1c % 8.4 % (4.0-6.0) H 05/17/17 23:45 Whole Bld Lactic Acid 1.72 mmol/L (0.60-1.99) 05/17/17 23:45 Calcium 8.5 mg/dL (8.6-10.3) L 05/22/17 06:47 Phosphorus 3.6 mg/dL (2.5-5.0) 05/17/17 23:45 Magnesium 2.3 mg/dL (1.9-2.7) 05/22/17 06:47 Total Bilirubin 0.3 mg/dL (0.3-1.0) 05/20/17 06:20 Direct Bilirubin 0.11 mg/dL (0.0-0.2) 05/17/17 23:45 AST 16 U/L (13-39) 05/20/17 06:20 ALT 15 U/L (7-52) 05/20/17 06:20 Alkaline Phosphatase 58 U/L (34-104) 05/20/17 06:20 Troponin I 0.06 ng/mL (0.01-0.05) H 05/17/17 23:45 C-Reactive Protein 12.5 mg/dL (0.0-0.9) H 05/21/17 10:40 B-Natriuretic Peptide 287.0 pg/mL (5.0-100.0) H 05/17/17 23:45 Total Protein 6.9 gm/dL (6.0-8.3) 05/20/17 06:20 Albumin 3.0 gm/dL (4.2-5.5) L 05/20/17 06:20 Globulin 3.9 gm/dL 05/20/17 06:20 Albumin/Globulin Ratio 0.8 (1.0-1.8) L 05/20/17 06:20 TSH 0.93 uIU/ml (0.34-5.60) 05/18/17 05:00 Urine Source MIDSTREAM 05/18/17 14:30 Urine Color YELLOW 05/18/17 14:30 Urine Clarity CLEAR (CLEAR) 05/18/17 14:30 Urine pH 7.5 (4.6 - 8.0) 05/18/17 14:30 Ur Specific [place] 1.010 (1.005-1.030) 05/18/17 14:30 Urine Protein 100 mg/dL (NEGATIVE) H 05/18/17 14:30 Urine Glucose (UA) 100 mg/dL (NEGATIVE) H 05/18/17 14:30 Urine Ketones NEGATIVE mg/dL (NEGATIVE) 05/18/17 14:30 Urine Blood TRACE (NEGATIVE) 05/18/17 14:30 Urine Nitrate NEGATIVE (NEGATIVE) 05/18/17 14:30 Urine Bilirubin NEGATIVE (NEGATIVE) 05/18/17 14:30 Urine Urobilinogen 0.2 E.U./dL (0.2 - 1.0) 05/18/17 14:30 Ur Leukocyte Esterase NEGATIVE (NEGATIVE) 05/18/17 14:30 Urine RBC 2-5 /hpf (0-5) H 05/18/17 14:30 Urine WBC NONE SEEN /hpf (0-5) 05/18/17 14:30 Ur Epithelial Cells NONE SEEN /lpf (FEW) 05/18/17 14:30 Urine Bacteria NONE SEEN /hpf (NONE SEEN) 05/18/17 14:30 Fluid Source PERITONEAL 05/18/17 22:00 Fluid Color COLORLESS 05/18/17 22:00 Fluid Appearance CLEAR 05/18/17 22:00 Fluid WBC 39 /cumm 05/18/17 22:00 Fluid RBC 5 /cumm 05/18/17 22:00 Fluid Neutrophils 76 % 05/18/17 22:00 Fluid Lymphocytes 22 % 05/18/17 22:00 Fluid Monocytes 2 % 05/18/17 22:00 Fluid Plasma Cells FEW 05/18/17 22:00 Body Fluid Clot NO 05/18/17 22:00 Fluid Total Protein < 3.0 g/dL 05/20/17 22:00 Fluid LDH 38 U/L 05/20/17 22:00 Fluid Amylase < 10 U/L 05/20/17 22:00 Random Vancomycin 15.8 ug/mL (5.0-40.0) 05/22/17 06:47 - Physical Exam Vitals and I&O: Vital Signs Temp 97 F 05/22/17 04:00 Pulse 68 05/22/17 14:32 Resp 18 05/22/17 10:37 BP 99/41 05/22/17 14:32 Pulse Ox 97 05/22/17 04:00 Intake & Output 05/21/17 05/22/17 05/22/17 18:59 06:59 18:59 Intake Total 1250 Output Total 700 Balance 550 Weight (lbs) 73.936 kg Intake: Oral 1250 Output: Urine 700 Other: # Voids 1 # Bowel Movements 0 Active Medications: Current Medications Amlodipine Besylate (Norvasc) 5 mg PO DAILY [facility] Stop: 07/18/17 08:59 Last Admin: 05/22/17 10:22 Dose: 5 mg Aspirin (Aspirin Chewable) 81 mg PO DAILY [facility] Stop: 07/21/17 09:29 Last Admin: 05/22/17 10:23 Dose: Not Given Brimonidine Tartrate (Alphagan 0.1% Ophth Soln) 1 drop EACH EYE HS [facility] Stop: 07/17/17 20:59 Last Admin: 05/21/17 21:18 Dose: 1 drop [place] Oil/[place] Balsam/Trypsin (Venelex) 1 appl TP DAILY [facility] Stop: 07/19/17 16:59 Last Admin: 05/22/17 10:20 Dose: Not Given Dextrose (D50w) 50 ml IVP PRN PRN PRN Reason: Blood Glucose less than 70 Stop: 07/17/17 03:40 Dextrose (Glutose 40%) 18.75 gm PO PRN PRN PRN Reason: Blood Glucose less than 70 Stop: 07/17/17 03:40 Famotidine (Pepcid) 40 mg PO DAILY [facility] Stop: 07/18/17 08:59 Last Admin: 05/22/17 10:22 Dose: 40 mg Gabapentin (Neurontin) 100 mg PO DAILY [facility] Stop: 07/18/17 08:59 Last Admin: 05/22/17 10:22 Dose: 100 mg Glucagon (Glucagen) 1 mg IM PRN PRN PRN Reason: Blood Glucose less than 70 Stop: 07/17/17 03:40 Hydralazine HCl (Apresoline) 25 mg PO BID [facility] Stop: 07/17/17 16:59 Last Admin: 05/22/17 10:20 Dose: 25 mg Piperacillin Sod/Tazobactam (Sod 2.25 gm/ Sodium Chloride) 50 mls @ 100 mls/hr IV Q6HR [facility] Stop: 07/21/17 11:59 Last Admin: 05/22/17 11:52 Dose: 100 mls/hr Insulin Aspart (Novolog Insulin Sliding Scale) 0 units SUBQ ACHS [facility] PRN Reason: Protocol Stop: 07/17/17 07:29 Last Admin: 05/22/17 12:11 Dose: 6 units Isosorbide Dinitrate (Isordil) 20 mg PO TID [facility] Stop: 07/17/17 13:59 Last Admin: 05/22/17 14:32 Dose: Not Given Metoprolol Tartrate (Lopressor) 50 mg PO BID [facility] Stop: 07/17/17 16:59 Last Admin: 05/22/17 10:21 Dose: 50 mg Miscellaneous (Vancomycin Iv Per Pharmacy) 1 ea [facility] PRN PRN PRN Reason: PROTOCOL Stop: 07/17/17 03:45 Prazosin HCl (Minipress) 2 mg PO DAILY [facility] Stop: 07/21/17 08:59 Last Admin: 05/22/17 10:23 Dose: 2 mg Simvastatin (Zocor) 20 mg PO HS [facility] PRN Reason: Protocol Stop: 07/17/17 20:59 Last Admin: 05/21/17 21:18 Dose: 20 mg Temazepam (Restoril) 15 mg PO HS PRN; Protocol PRN Reason: Insomnia Stop: 07/19/17 20:59 Tramadol HCl (Ultram) 50 mg PO Q4H PRN PRN Reason: pain management Stop: 07/19/17 14:16 Last Admin: 05/21/17 10:59 Dose: 50 mg General: Alert, No acute distress HEENT: Atraumatic, EOMI, Mucous membr. 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 CAD CABG Left Scapular Abscess Left leg osteo? - Plan Plan: Lab - Result Diagrams 05/20/17 06:20 05/20/17 06:20 Current Medications Amlodipine Besylate (Norvasc) 5 mg PO DAILY [facility] Stop: 07/18/17 08:59 Last Admin: 05/20/17 08:41 Dose: 5 mg Brimonidine Tartrate (Alphagan 0.1% Ophth Soln) 1 drop EACH EYE HS [facility] Stop: 07/17/17 20:59 Last Admin: 05/19/17 21:48 Dose: 1 drop Dextrose (D50w) 50 ml IVP PRN PRN PRN Reason: Blood Glucose less than 70 Stop: 07/17/17 03:40 Dextrose (Glutose 40%) 18.75 gm PO PRN PRN PRN Reason: Blood Glucose less than 70 Stop: 07/17/17 03:40 Famotidine (Pepcid) 40 mg PO DAILY [facility] Stop: 07/18/17 08:59 Last Admin: 05/20/17 08:40 Dose: 40 mg Gabapentin (Neurontin) 100 mg PO DAILY [facility] Stop: 07/18/17 08:59 Last Admin: 05/20/17 08:40 Dose: 100 mg Glucagon (Glucagen) 1 mg IM PRN PRN PRN Reason: Blood Glucose less than 70 Stop: 07/17/17 03:40 Hydralazine HCl (Apresoline) 25 mg PO BID [facility] Stop: 07/17/17 16:59 Last Admin: 05/20/17 08:42 Dose: Not Given Ceftriaxone Sodium 1 gm/ (Dextrose) 50 mls @ 100 mls/hr IV Q24H [facility] Stop: 07/17/17 00:59 Last Admin: 05/20/17 00:48 Dose: 100 mls/hr Insulin Aspart (Novolog Insulin Sliding Scale) 0 units SUBQ ACHS [facility] PRN Reason: Protocol Stop: 07/17/17 07:29 Last Admin: 05/20/17 14:14 Dose: Not Given Isosorbide Dinitrate (Isordil) 20 mg PO TID [facility] Stop: 07/17/17 13:59 Last Admin: 05/20/17 08:40 Dose: 20 mg Metoprolol Tartrate (Lopressor) 50 mg PO BID [facility] Stop: 07/17/17 16:59 Last Admin: 05/20/17 08:39 Dose: 50 mg Miscellaneous (Vancomycin Iv Per Pharmacy) 1 ea [facility] PRN PRN PRN Reason: PROTOCOL Stop: 07/17/17 03:45 Simvastatin (Zocor) 20 mg PO HS [facility] PRN Reason: Protocol Stop: 07/17/17 20:59 Last Admin: 05/19/17 21:49 Dose: 20 mg Lab - Result Diagrams 05/22/17 06:47 05/22/17 06:47 Still elevated WBC @ 18.2 S/P I/D Left scapular abscess continue ABx switched to daily PD exchanges Nutritional Asmnt/Malnutr-PDOC - Dietary Evaluation Malnutrition Findings (Please click <Entered> for more info): Nutritional Asmnt/Malnutrition Start: 05/20/17 15: 35 Text: Status: Complete Freq: Document 05/20/17 15:35 VENECIA (Rec: 05/20/17 15:52 VENECIA [facility]) Nutritional Asmnt/Malnutrition Patient General Information Nutritional Screening High Risk Consult Diagnosis right thumb cellulitis Pertinent Medical Hx/Surgical Hx CAD, CHF, HTN, weakness, chronic renal insuff, benign prostatic enlarg, on PD, DM, ulcer Subjective Information Consult received for DM, non- healing wounds, open wounds. Pt seen resting in bed at time of visit. Per EMR, PO intake 50-100%. Pt on peritoneal dialysis noted. Current Diet Order/ Nutrition Support ccho, low sodium Pertinent Medications D50w, novolog Pertinent Labs 05/20 Na 128, Cl 96, BUN 93, Cr 6.9, GLucose 446, POC 215 Nutritional Hx/Data Height 1.73 m Height (Calculated Centimeters) 172.7 Current Weight (lbs) 73.936 kg Weight (Calculated Kilograms) 73.9 Weight (Calculated Grams) 79878.6 Body Mass Index (BMI) 24.7 GI Symptoms GI Symptoms None Last BM 05/19 Difficult in: None Skin Integrity/Comment: reddened to left shoulder back laceration ulceration to right anterior leg Current %PO Good (75-100%) Estimated Nutritional Goals BEE in Kcals: Using Current wt Calories/Kcals/Kg 25-30 Kcals Calculated 4983-4882 Protein: Using Current wt Protein g/k-1.2 Protein Calculated 74-89 Fluid: ml 1850-2220ml (1ml/kcal) Nutritional Problem 1. Problem Problem altered nutrition related lab values Etiology hx of chronic renal insuff, DM Signs/Symptoms: BUN 93, Cr 6.9, GLucose 446, POC 215 Malnutrition Alert Protein-Calorie Malnutrition N/A Is there a minimum of two criteria No selected? Query Text:Check all the applicable criteria. A minimum of two criteria are recommended for diagnosis of either severe or non-severe malnutrition. Intervention/Recommendation Comments 1. Continue with current diet as ordered. Recommend Arginaid 1pk daily to heal wound healing 2. MD to consider vit c and zinc to help wound healing 3. Monitor PO intake, wt, labs and skin integrity 4. F/U as moderate risk in 3-5 days, 05/23-05/25. PO check Expected Outcomes/Goals Expected Outcomes/Goals 1. PO intake to meet at least 75% of nutritional needs. 2. Wt stability, skin to remain intact, labs to approach WNL.
--- NOTE | 2017-05-22 16:15 | Operative Report ---
DATE OF SURGERY: 05/22/2017 PREOPERATIVE DIAGNOSES: 1. Abscess, left scapular area. 2. Decubitus ulcer, right leg. 3. Diabetes mellitus. 4. End-stage renal disease. POSTOPERATIVE DIAGNOSES: 1. Abscess, left scapular area. 2. Decubitus ulcer, right leg. 3. Diabetes mellitus. 4. End-stage renal disease. OPERATION DONE: 1. Incision and drainage of abscess, left scapular area. 2. Excisional debridement of right leg ulcer. SURGEON: Dr. Payton ANESTHESIA: MAC. ANESTHESIOLOGIST: Dr. Langston OPERATIVE FINDINGS: Abscess with thick purulent material in the left scapular area, draining about 50 mL. Cultures were taken and drain was placed. The right leg ulcer measured 6 x 7 cm stage 2. DESCRIPTION OF PROCEDURE: The patient was given IV sedation. He was placed in the right lateral decubitus position. The abscess area was prepped with Betadine and draped. A 1% lidocaine was used to infiltrate the dome of the abscess. An incision was made and thick bone material was aspirated and drained. Irrigation with saline solution was carried out and a Diego-Rogers drain was left in the cavity. This secured in place with 2-0 silk. The right leg ulcer was debrided sharply with the scissors. Venelex was then applied postop. JOB# [id number]
[2017-05-22] MEDS ORDERED: Insulin Detemir 100 units/mL 10mL Vial SUBQ SCH (21:00)
[2017-05-23 07:55] LABS: HEMATOCRIT 27.8 % (41.0-60); HEMOGLOBIN 9.3 gm/dL (12-16); MEAN CELL VOLUME 94.1 fl (80-99); MEAN CORPUSCULAR HEMOGLOBIN 31.4 pg (27.0-31.0); MEAN CORPUSCULAR HGB CONC 33.3 pg (28.0-36.0); MEAN PLATELET VOLUME 7.9 fl; PLATELET COUNT 380 Th/cmm (150-400); RED BLOOD COUNT 2.96 Mil/cmm (3.80-5.80); RED CELL DISTRIBUTION WIDTH 13.4 % (11.5-20.0)
--- NOTE | 2017-05-23 08:34 | General Progress Note ---
Subjective - Review of Systems Service Date: 05/23/17 Events since last encounter: no DV T arterial study small vessel disease, no angiogram recommended continue wound care Objective - Results Result Diagrams: 05/23/17 06:51 05/22/17 06:47 Recent Labs: Laboratory Last Values WBC 14.0 Th/cmm (4.8-10.8) H 05/23/17 06:51 RBC 2.96 Mil/cmm (3.80-5.80) L 05/23/17 06:51 Hgb 9.3 gm/dL (12-16) L 05/23/17 06:51 Hct 27.8 % (41.0-60) L 05/23/17 06:51 MCV 94.1 fl (80-99) 05/23/17 06:51 MCH 31.4 pg (27.0-31.0) H 05/23/17 06:51 MCHC Differential 33.3 pg (28.0-36.0) 05/23/17 06:51 RDW 13.4 % (11.5-20.0) 05/23/17 06:51 Plt Count 380 Th/cmm (150-400) 05/23/17 06:51 MPV 7.9 fl 05/23/17 06:51 Neutrophils % 77.4 % (40.0-80.0) 05/23/17 06:51 Band Neutrophils % 10 % (0-10) 05/17/17 23:45 Lymphocytes % 7.7 % (20.0-50.0) L 05/23/17 06:51 Monocytes % 6.6 % (2.0-10.0) 05/23/17 06:51 Eosinophils % 7.6 % (0.0-5.0) H 05/23/17 06:51 Basophils % 0.7 % (0.0-2.0) 05/23/17 06:51 Neutrophils (Manual) 80 % (40-80) 05/17/17 23:45 Lymphocytes 4 % (20-50) L 05/17/17 23:45 Monocytes 4 % (2-10) 05/17/17 23:45 Eosinophils 2 % (0-5) 05/17/17 23:45 Basophils 0 % (0-3) 05/17/17 23:45 ESR 86 mm/hr (0-20) H 05/21/17 10:40 PT 10.3 SECONDS (9.5-11.5) 05/21/17 10:40 INR 0.99 (0.5-1.4) 05/21/17 10:40 PTT (Actin FS) 28.8 SECONDS (26.0-38.0) 05/21/17 10:40 Sodium 125 mEq/L (136-145) L 05/22/17 06:47 Potassium 3.9 mEq/L (3.5-5.1) 05/22/17 06:47 Chloride 95 mEq/L (98-107) L 05/22/17 06:47 Carbon Dioxide 21.9 mEq/L (21.0-31.0) 05/22/17 06:47 Anion Gap 12.0 (7.0-16.0) 05/22/17 06:47 BUN 80 mg/dL (7-25) H 05/22/17 06:47 Creatinine 6.2 mg/dL (0.7-1.3) H* 05/22/17 06:47 Est GFR ( Amer) TNP 05/22/17 06:47 Est GFR (Non-Af Amer) TNP 05/22/17 06:47 BUN/Creatinine Ratio 12.9 05/22/17 06:47 Glucose 277 mg/dL (70-105) H 05/22/17 06:47 POC Glucose 217 MG/DL (70 - 105) H 05/23/17 06:12 Hemoglobin A1c % 8.4 % (4.0-6.0) H 05/17/17 23:45 Whole Bld Lactic Acid 1.72 mmol/L (0.60-1.99) 05/17/17 23:45 Calcium 8.5 mg/dL (8.6-10.3) L 05/22/17 06:47 Phosphorus 3.6 mg/dL (2.5-5.0) 05/17/17 23:45 Magnesium 2.3 mg/dL (1.9-2.7) 05/22/17 06:47 Total Bilirubin 0.3 mg/dL (0.3-1.0) 05/20/17 06:20 Direct Bilirubin 0.11 mg/dL (0.0-0.2) 05/17/17 23:45 AST 16 U/L (13-39) 05/20/17 06:20 ALT 15 U/L (7-52) 05/20/17 06:20 Alkaline Phosphatase 58 U/L (34-104) 05/20/17 06:20 Troponin I 0.06 ng/mL (0.01-0.05) H 05/17/17 23:45 C-Reactive Protein 12.5 mg/dL (0.0-0.9) H 05/21/17 10:40 B-Natriuretic Peptide 287.0 pg/mL (5.0-100.0) H 05/17/17 23:45 Total Protein 6.9 gm/dL (6.0-8.3) 05/20/17 06:20 Albumin 3.0 gm/dL (4.2-5.5) L 05/20/17 06:20 Globulin 3.9 gm/dL 05/20/17 06:20 Albumin/Globulin Ratio 0.8 (1.0-1.8) L 05/20/17 06:20 TSH 0.93 uIU/ml (0.34-5.60) 05/18/17 05:00 Urine Source MIDSTREAM 05/18/17 14:30 Urine Color YELLOW 05/18/17 14:30 Urine Clarity CLEAR (CLEAR) 05/18/17 14:30 Urine pH 7.5 (4.6 - 8.0) 05/18/17 14:30 Ur Specific [place] 1.010 (1.005-1.030) 05/18/17 14:30 Urine Protein 100 mg/dL (NEGATIVE) H 05/18/17 14:30 Urine Glucose (UA) 100 mg/dL (NEGATIVE) H 05/18/17 14:30 Urine Ketones NEGATIVE mg/dL (NEGATIVE) 05/18/17 14:30 Urine Blood TRACE (NEGATIVE) 05/18/17 14:30 Urine Nitrate NEGATIVE (NEGATIVE) 05/18/17 14:30 Urine Bilirubin NEGATIVE (NEGATIVE) 05/18/17 14:30 Urine Urobilinogen 0.2 E.U./dL (0.2 - 1.0) 05/18/17 14:30 Ur Leukocyte Esterase NEGATIVE (NEGATIVE) 05/18/17 14:30 Urine RBC 2-5 /hpf (0-5) H 05/18/17 14:30 Urine WBC NONE SEEN /hpf (0-5) 05/18/17 14:30 Ur Epithelial Cells NONE SEEN /lpf (FEW) 05/18/17 14:30 Urine Bacteria NONE SEEN /hpf (NONE SEEN) 05/18/17 14:30 Fluid Source PERITONEAL 05/18/17 22:00 Fluid Color COLORLESS 05/18/17 22:00 Fluid Appearance CLEAR 05/18/17 22:00 Fluid WBC 39 /cumm 05/18/17 22:00 Fluid RBC 5 /cumm 05/18/17 22:00 Fluid Neutrophils 76 % 05/18/17 22:00 Fluid Lymphocytes 22 % 05/18/17 22:00 Fluid Monocytes 2 % 05/18/17 22:00 Fluid Plasma Cells FEW 05/18/17 22:00 Body Fluid Clot NO 05/18/17 22:00 Fluid Total Protein < 3.0 g/dL 05/20/17 22:00 Fluid LDH 38 U/L 05/20/17 22:00 Fluid Amylase < 10 U/L 05/20/17 22:00 Random Vancomycin 15.8 ug/mL (5.0-40.0) 05/22/17 06:47 - Physical Exam Vitals and I&O: Vital Signs Temp 97.7 F 05/23/17 04:00 Pulse 64 05/23/17 04:00 Resp 18 05/23/17 04:00 BP 134/60 05/23/17 04:00 Pulse Ox 94 05/23/17 04:00 Intake & Output 05/22/17 05/23/17 05/23/17 18:59 06:59 18:59 Intake Total 700 290 Output Total 40 30 Balance 660 260 Weight (lbs) 73.936 kg 73.936 kg Intake: Intake, IV Amount 100 50 Piperacillin Sodium/ 100 50 Tazobact 2.25 gm In Sodium Chloride 0.9% 50 ml @ 100 mls/hr IV Q6HR [facility] Rx#:[id number] Oral 600 240 Output: Drainage 40 30 Left Shoulder 40 30 Stool 0 Other: # Voids 1 1 # Bowel Movements 0 0 Active Medications: Current Medications Amlodipine Besylate (Norvasc) 5 mg PO DAILY [facility] Stop: 07/18/17 08:59 Last Admin: 05/22/17 10:22 Dose: 5 mg Aspirin (Aspirin Chewable) 81 mg PO DAILY [facility] Stop: 07/21/17 09:29 Last Admin: 05/22/17 10:23 Dose: Not Given Brimonidine Tartrate (Alphagan 0.1% Oph Soln) 1 drop EACH EYE HS [facility] Stop: 07/17/17 20:59 Last Admin: 05/22/17 21:17 Dose: 1 drop [place] Oil/[place] Balsam/Trypsin (Venelex) 1 appl TP DAILY [facility] Stop: 07/19/17 16:59 Last Admin: 05/22/17 10:20 Dose: Not Given Dextrose (D50w) 50 ml IVP PRN PRN PRN Reason: Blood Glucose less than 70 Stop: 07/17/17 03:40 Dextrose (Glutose 40%) 18.75 gm PO PRN PRN PRN Reason: Blood Glucose less than 70 Stop: 07/17/17 03:40 Famotidine (Pepcid) 40 mg PO DAILY [facility] Stop: 07/18/17 08:59 Last Admin: 05/22/17 10:22 Dose: 40 mg Gabapentin (Neurontin) 100 mg PO DAILY [facility] Stop: 07/18/17 08:59 Last Admin: 05/22/17 10:22 Dose: 100 mg Glucagon (Glucagen) 1 mg IM PRN PRN PRN Reason: Blood Glucose less than 70 Stop: 07/17/17 03:40 Hydralazine HCl (Apresoline) 25 mg PO BID [facility] Stop: 07/17/17 16:59 Last Admin: 05/22/17 17:29 Dose: Not Given Piperacillin Sod/Tazobactam (Sod 2.25 gm/ Sodium Chloride) 50 mls @ 100 mls/hr IV Q6HR [facility] Stop: 07/21/17 11:59 Last Admin: 05/23/17 05:36 Dose: 100 mls/hr Insulin Aspart (Novolog Insulin Sliding Scale) 0 units SUBQ ACHS [facility] PRN Reason: Protocol Stop: 07/17/17 07:29 Last Admin: 05/22/17 21:13 Dose: 8 units Insulin Detemir (Levemir Insulin) 15 units SUBQ HS [facility] PRN Reason: Protocol Stop: 07/21/17 20:59 Last Admin: 05/22/17 21:12 Dose: 15 units Isosorbide Dinitrate (Isordil) 20 mg PO TID [facility] Stop: 07/17/17 13:59 Last Admin: 05/22/17 21:17 Dose: 20 mg Metoprolol Tartrate (Lopressor) 50 mg PO BID [facility] Stop: 07/17/17 16:59 Last Admin: 05/22/17 17:30 Dose: Not Given Miscellaneous (Vancomycin Iv Per Pharmacy) 1 ea [facility] PRN PRN PRN Reason: PROTOCOL Stop: 07/17/17 03:45 Prazosin HCl (Minipress) 2 mg PO DAILY [facility] Stop: 07/21/17 08:59 Last Admin: 05/22/17 10:23 Dose: 2 mg Simvastatin (Zocor) 20 mg PO HS [facility] PRN Reason: Protocol Stop: 07/17/17 20:59 Last Admin: 05/22/17 21:17 Dose: 20 mg Temazepam (Restoril) 15 mg PO HS PRN; Protocol PRN Reason: Insomnia Stop: 07/19/17 20:59 Tramadol HCl (Ultram) 50 mg PO Q4H PRN PRN Reason: pain management Stop: 07/19/17 14:16 Last Admin: 05/21/17 10:59 Dose: 50 mg General: Alert, No acute distress HEENT: Atraumatic, EOMI, Mucous membr. moist/pink Neck: Supple, +2 carotid pulse wo bruit Cardiovascular: Regular rate, Normal S1, Normal S2 Lungs: Clear to auscultation Abdomen: Bowel sounds, Soft Extremities: Other (No edema) Neurological: Normal gait Skin: Other (Ulcer in right leg) Psych/Mental Status: Mental status NL Nutritional Asmnt/Malnutr-PDOC - Dietary Evaluation Malnutrition Findings (Please click <Entered> for more info): Nutritional Asmnt/Malnutrition Start: 05/20/17 15: 35 Text: Status: Complete Freq: Document 05/20/17 15:35 LCHENG (Rec: 05/20/17 15:52 LCHENG ALEXANDRE-FN) Nutritional Asmnt/Malnutrition Patient General Information Nutritional Screening High Risk Consult Diagnosis right thumb cellulitis Pertinent Medical Hx/Surgical Hx CAD, CHF, HTN, weakness, chronic renal insuff, benign prostatic enlarg, on PD, DM, ulcer Subjective Information Consult received for DM, non- healing wounds, open wounds. Pt seen resting in bed at time of visit. Per EMR, PO intake 50-100%. Pt on peritoneal dialysis noted. Current Diet Order/ Nutrition Support ccho, low sodium Pertinent Medications D50w, novolog Pertinent Labs 05/20 Na 128, Cl 96, BUN 93, Cr 6.9, GLucose 446, POC 215 Nutritional Hx/Data Height 1.73 m Height (Calculated Centimeters) 172.7 Current Weight (lbs) 73.936 kg Weight (Calculated Kilograms) 73.9 Weight (Calculated Grams) 37727.6 Body Mass Index (BMI) 24.7 GI Symptoms GI Symptoms None Last BM 05/19 Difficult in: None Skin Integrity/Comment: reddened to left shoulder back laceration ulceration to right anterior leg Current %PO Good (75-100%) Estimated Nutritional Goals BEE in Kcals: Using Current wt Calories/Kcals/Kg 25-30 Kcals Calculated 9421-4195 Protein: Using Current wt Protein g/k-1.2 Protein Calculated 74-89 Fluid: ml 1850-2220ml (1ml/kcal) Nutritional Problem 1. Problem Problem altered nutrition related lab values Etiology hx of chronic renal insuff, DM Signs/Symptoms: BUN 93, Cr 6.9, GLucose 446, POC 215 Malnutrition Alert Protein-Calorie Malnutrition N/A Is there a minimum of two criteria No selected? Query Text:Check all the applicable criteria. A minimum of two criteria are recommended for diagnosis of either severe or non-severe malnutrition. Intervention/Recommendation Comments 1. Continue with current diet as ordered. Recommend Arginaid 1pk daily to heal wound healing 2. MD to consider vit c and zinc to help wound healing 3. Monitor PO intake, wt, labs and skin integrity 4. F/U as moderate risk in 3-5 days, 05/23-05/25. PO check Expected Outcomes/Goals Expected Outcomes/Goals 1. PO intake to meet at least 75% of nutritional needs. 2. Wt stability, skin to remain intact, labs to approach WNL.
[2017-05-23 08:55] LABS: ALB/GLOB RATIO 0.7 (1.0-1.8); ALBUMIN 2.6 gm/dL (4.2-5.5); ALKALINE PHOSPHATASE 55 U/L (34-104); ANION GAP 13.4 (7.0-16.0); BILIRUBIN,TOTAL 0.3 mg/dL (0.3-1.0); BUN - UREA NITROGEN 75 mg/dL (7-25); CALCIUM SERUM 8.5 mg/dL (8.6-10.3); CARBON DIOXIDE 24.4 mEq/L (21.0-31.0); CHLORIDE 97 mEq/L (98-107); GLUCOSE 196 mg/dL (70-105); MANUAL DIFF REQUIRED? YES; POTASSIUM SERUM 3.8 mEq/L (3.5-5.1); SGOT 11 U/L (13-39); SGPT/ALT 11 U/L (7-52); SODIUM SERUM 131 mEq/L (136-145); TOTAL PROTEIN,SERUM 6.1 gm/dL (6.0-8.3)
[2017-05-23 08:56] LABS: BASOPHIL 2 % (0-3); EOSINOPHIL 3 % (0-5); LYMPHOCYTE 8 % (20-50); MONOCYTE 9 % (2-10); NEUTROPHILS 78 % (40-80); PLATELET ESTIMATE ADEQUATE (NORMAL); TOTAL CELLS COUNTED 100
[2017-05-23] MEDS: Aspirin 81mg Chewable Tab PO SCH (09:02)
[2017-05-23] MEDS: INSULIN ASPART SLIDING SCALE 100 UNITS/ML UNIT SUBQ SCH ×3 (09:05→17:04)
[2017-05-23] MEDS: Venelex 60gm Tube TP SCH (09:06)
[2017-05-23 09:23] LABS: CREATININE - SERUM 6.2 mg/dL (0.7-1.3)
[2017-05-23 11:24] LABS: BF AMYLASE 2 U/L
--- NOTE | 2017-05-23 14:54 | General Progress Note ---
Subjective - Review of Systems Service Date: 05/23/17 Subjective: alert, weak, comfortable Objective - Results Result Diagrams: 05/23/17 06:51 05/23/17 06:51 Recent Labs: Laboratory Last Values WBC 14.0 Th/cmm (4.8-10.8) H 05/23/17 06:51 RBC 2.96 Mil/cmm (3.80-5.80) L 05/23/17 06:51 Hgb 9.3 gm/dL (12-16) L 05/23/17 06:51 Hct 27.8 % (41.0-60) L 05/23/17 06:51 MCV 94.1 fl (80-99) 05/23/17 06:51 MCH 31.4 pg (27.0-31.0) H 05/23/17 06:51 MCHC Differential 33.3 pg (28.0-36.0) 05/23/17 06:51 RDW 13.4 % (11.5-20.0) 05/23/17 06:51 Plt Count 380 Th/cmm (150-400) 05/23/17 06:51 MPV 7.9 fl 05/23/17 06:51 Neutrophils % CIGAR PATCHER 05/23/17 06:51 Band Neutrophils % 10 % (0-10) 05/17/17 23:45 Lymphocytes % CIGAR PATCHER 05/23/17 06:51 Monocytes % CIGAR PATCHER 05/23/17 06:51 Eosinophils % CIGAR PATCHER 05/23/17 06:51 Basophils % CIGAR PATCHER 05/23/17 06:51 Neutrophils (Manual) 78 % (40-80) 05/23/17 06:51 Lymphocytes 8 % (20-50) L 05/23/17 06:51 Monocytes 9 % (2-10) 05/23/17 06:51 Eosinophils 3 % (0-5) 05/23/17 06:51 Basophils 2 % (0-3) 05/23/17 06:51 Platelet Estimate ADEQUATE (NORMAL) 05/23/17 06:51 ESR 86 mm/hr (0-20) H 05/21/17 10:40 PT 10.3 SECONDS (9.5-11.5) 05/21/17 10:40 INR 0.99 (0.5-1.4) 05/21/17 10:40 PTT (Actin FS) 28.8 SECONDS (26.0-38.0) 05/21/17 10:40 Sodium 131 mEq/L (136-145) L 05/23/17 06:51 Potassium 3.8 mEq/L (3.5-5.1) 05/23/17 06:51 Chloride 97 mEq/L (98-107) L 05/23/17 06:51 Carbon Dioxide 24.4 mEq/L (21.0-31.0) 05/23/17 06:51 Anion Gap 13.4 (7.0-16.0) 05/23/17 06:51 BUN 75 mg/dL (7-25) H 05/23/17 06:51 Creatinine 6.2 mg/dL (0.7-1.3) H* 05/23/17 06:51 Est GFR ( Amer) TNP 05/23/17 06:51 Est GFR (Non-Af Amer) TNP 05/23/17 06:51 BUN/Creatinine Ratio 12.1 05/23/17 06:51 Glucose 196 mg/dL (70-105) H 05/23/17 06:51 POC Glucose 269 MG/DL (70 - 105) H 05/23/17 11:33 Hemoglobin A1c % 8.4 % (4.0-6.0) H 05/17/17 23:45 Whole Bld Lactic Acid 1.72 mmol/L (0.60-1.99) 05/17/17 23:45 Calcium 8.5 mg/dL (8.6-10.3) L 05/23/17 06:51 Phosphorus 3.6 mg/dL (2.5-5.0) 05/17/17 23:45 Magnesium 2.3 mg/dL (1.9-2.7) 05/22/17 06:47 Total Bilirubin 0.3 mg/dL (0.3-1.0) 05/23/17 06:51 Direct Bilirubin 0.11 mg/dL (0.0-0.2) 05/17/17 23:45 AST 11 U/L (13-39) L 05/23/17 06:51 ALT 11 U/L (7-52) 05/23/17 06:51 Alkaline Phosphatase 55 U/L (34-104) 05/23/17 06:51 Troponin I 0.06 ng/mL (0.01-0.05) H 05/17/17 23:45 C-Reactive Protein 12.5 mg/dL (0.0-0.9) H 05/21/17 10:40 B-Natriuretic Peptide 287.0 pg/mL (5.0-100.0) H 05/17/17 23:45 Total Protein 6.1 gm/dL (6.0-8.3) 05/23/17 06:51 Albumin 2.6 gm/dL (4.2-5.5) L 05/23/17 06:51 Globulin 3.5 gm/dL 05/23/17 06:51 Albumin/Globulin Ratio 0.7 (1.0-1.8) L 05/23/17 06:51 TSH 0.93 uIU/ml (0.34-5.60) 05/18/17 05:00 Urine Source MIDSTREAM 05/18/17 14:30 Urine Color YELLOW 05/18/17 14:30 Urine Clarity CLEAR (CLEAR) 05/18/17 14:30 Urine pH 7.5 (4.6 - 8.0) 05/18/17 14:30 Ur Specific [place] 1.010 (1.005-1.030) 05/18/17 14:30 Urine Protein 100 mg/dL (NEGATIVE) H 05/18/17 14:30 Urine Glucose (UA) 100 mg/dL (NEGATIVE) H 05/18/17 14:30 Urine Ketones NEGATIVE mg/dL (NEGATIVE) 05/18/17 14:30 Urine Blood TRACE (NEGATIVE) 05/18/17 14:30 Urine Nitrate NEGATIVE (NEGATIVE) 05/18/17 14:30 Urine Bilirubin NEGATIVE (NEGATIVE) 05/18/17 14:30 Urine Urobilinogen 0.2 E.U./dL (0.2 - 1.0) 05/18/17 14:30 Ur Leukocyte Esterase NEGATIVE (NEGATIVE) 05/18/17 14:30 Urine RBC 2-5 /hpf (0-5) H 05/18/17 14:30 Urine WBC NONE SEEN /hpf (0-5) 05/18/17 14:30 Ur Epithelial Cells NONE SEEN /lpf (FEW) 05/18/17 14:30 Urine Bacteria NONE SEEN /hpf (NONE SEEN) 05/18/17 14:30 Fluid Source PERITONEAL 05/18/17 22:00 Fluid Color COLORLESS 05/18/17 22:00 Fluid Appearance CLEAR 05/18/17 22:00 Fluid WBC 39 /cumm 05/18/17 22:00 Fluid RBC 5 /cumm 05/18/17 22:00 Fluid Neutrophils 76 % 05/18/17 22:00 Fluid Lymphocytes 22 % 05/18/17 22:00 Fluid Monocytes 2 % 05/18/17 22:00 Fluid Plasma Cells FEW 05/18/17 22:00 Body Fluid Clot NO 05/18/17 22:00 Fluid Glucose 1686.0 mg/dL 05/20/17 22:00 Fluid Total Protein < 3.0 g/dL 05/20/17 22:00 Fluid LDH 38 U/L 05/20/17 22:00 Fluid Amylase 2 U/L 05/20/17 22:00 Fluid Lipase TNP 05/20/17 22:00 Random Vancomycin 15.8 ug/mL (5.0-40.0) 05/22/17 06:47 - Physical Exam Vitals and I&O: Vital Signs Temp 97.5 F 05/23/17 12:00 Pulse 62 05/23/17 14:00 Resp 18 05/23/17 12:00 BP 118/57 05/23/17 14:00 Pulse Ox 96 05/23/17 12:00 Intake & Output 05/22/17 05/23/17 05/23/17 18:59 06:59 18:59 Intake Total 700 340 Output Total 40 30 Balance 660 310 Weight (lbs) 73.936 kg 73.936 kg Intake: Intake, IV Amount 100 100 Piperacillin Sodium/ 100 100 Tazobact 2.25 gm In Sodium Chloride 0.9% 50 ml @ 100 mls/hr IV Q6HR [facility] Rx#:[id number] Oral 600 240 Output: Drainage 40 30 Left Shoulder 40 30 Stool 0 Other: # Voids 1 1 # Bowel Movements 0 0 Active Medications: Current Medications Amlodipine Besylate (Norvasc) 5 mg PO DAILY [facility] Stop: 07/18/17 08:59 Last Admin: 05/23/17 09:05 Dose: 5 mg Aspirin (Aspirin Chewable) 81 mg PO DAILY [facility] Stop: 07/21/17 09:29 Last Admin: 05/23/17 09:02 Dose: 81 mg Brimonidine Tartrate (Alphagan 0.1% Oph Soln) 1 drop EACH EYE HS [facility] Stop: 07/17/17 20:59 Last Admin: 05/22/17 21:17 Dose: 1 drop [place] Oil/Spanish Balsam/Trypsin (Venelex) 1 appl TP DAILY [facility] Stop: 07/19/17 16:59 Last Admin: 05/23/17 09:06 Dose: 1 appl Cilostazol (Pletal) 50 mg PO DAILY [facility] Stop: 07/22/17 09:29 Last Admin: 05/23/17 13:59 Dose: 50 mg Dextrose (D50w) 50 ml IVP PRN PRN PRN Reason: Blood Glucose less than 70 Stop: 07/17/17 03:40 Dextrose (Glutose 40%) 18.75 gm PO PRN PRN PRN Reason: Blood Glucose less than 70 Stop: 07/17/17 03:40 Famotidine (Pepcid) 40 mg PO DAILY [facility] Stop: 07/18/17 08:59 Last Admin: 05/23/17 09:02 Dose: 40 mg Gabapentin (Neurontin) 100 mg PO DAILY [facility] Stop: 07/18/17 08:59 Last Admin: 05/23/17 09:02 Dose: 100 mg Glucagon (Glucagen) 1 mg IM PRN PRN PRN Reason: Blood Glucose less than 70 Stop: 07/17/17 03:40 Hydralazine HCl (Apresoline) 25 mg PO BID [facility] Stop: 07/17/17 16:59 Last Admin: 05/23/17 09:03 Dose: 25 mg Piperacillin Sod/Tazobactam (Sod 2.25 gm/ Sodium Chloride) 50 mls @ 100 mls/hr IV Q6HR [facility] Stop: 07/21/17 11:59 Last Admin: 05/23/17 12:17 Dose: 100 mls/hr Insulin Aspart (Novolog Insulin Sliding Scale) 0 units SUBQ ACHS [facility] PRN Reason: Protocol Stop: 07/17/17 07:29 Last Admin: 05/23/17 12:17 Dose: 6 units Insulin Detemir (Levemir Insulin) 15 units SUBQ HS [facility] PRN Reason: Protocol Stop: 07/21/17 20:59 Last Admin: 05/22/17 21:12 Dose: 15 units Isosorbide Dinitrate (Isordil) 20 mg PO TID [facility] Stop: 07/17/17 13:59 Last Admin: 05/23/17 14:00 Dose: 20 mg Metoprolol Tartrate (Lopressor) 50 mg PO BID [facility] Stop: 07/17/17 16:59 Last Admin: 05/23/17 09:05 Dose: 50 mg Miscellaneous (Vancomycin Iv Per Pharmacy) 1 ea [facility] PRN PRN PRN Reason: PROTOCOL Stop: 07/17/17 03:45 Prazosin HCl (Minipress) 2 mg PO DAILY [facility] Stop: 07/21/17 08:59 Last Admin: 05/23/17 09:05 Dose: 2 mg Simvastatin (Zocor) 20 mg PO HS [facility] PRN Reason: Protocol Stop: 07/17/17 20:59 Last Admin: 05/22/17 21:17 Dose: 20 mg Temazepam (Restoril) 15 mg PO HS PRN; Protocol PRN Reason: Insomnia Stop: 07/19/17 20:59 Tramadol HCl (Ultram) 50 mg PO Q4H PRN PRN Reason: pain management Stop: 07/19/17 14:16 Last Admin: 05/21/17 10:59 Dose: 50 mg General: Alert, No acute distress HEENT: Atraumatic, EOMI, Mucous membr. 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 CAD CABG Left Scapular Abscess Left leg osteo? - Plan Plan: Lab - Result Diagrams 05/20/17 06:20 05/20/17 06:20 Current Medications Amlodipine Besylate (Norvasc) 5 mg PO DAILY [facility] Stop: 07/18/17 08:59 Last Admin: 05/20/17 08:41 Dose: 5 mg Brimonidine Tartrate (Alphagan 0.1% Oph Soln) 1 drop EACH EYE HS [facility] Stop: 07/17/17 20:59 Last Admin: 05/19/17 21:48 Dose: 1 drop Dextrose (D50w) 50 ml IVP PRN PRN PRN Reason: Blood Glucose less than 70 Stop: 07/17/17 03:40 Dextrose (Glutose 40%) 18.75 gm PO PRN PRN PRN Reason: Blood Glucose less than 70 Stop: 07/17/17 03:40 Famotidine (Pepcid) 40 mg PO DAILY [facility] Stop: 07/18/17 08:59 Last Admin: 05/20/17 08:40 Dose: 40 mg Gabapentin (Neurontin) 100 mg PO DAILY [facility] Stop: 07/18/17 08:59 Last Admin: 05/20/17 08:40 Dose: 100 mg Glucagon (Glucagen) 1 mg IM PRN PRN PRN Reason: Blood Glucose less than 70 Stop: 07/17/17 03:40 Hydralazine HCl (Apresoline) 25 mg PO BID [facility] Stop: 07/17/17 16:59 Last Admin: 05/20/17 08:42 Dose: Not Given Ceftriaxone Sodium 1 gm/ (Dextrose) 50 mls @ 100 mls/hr IV Q24H [facility] Stop: 07/17/17 00:59 Last Admin: 05/20/17 00:48 Dose: 100 mls/hr Insulin Aspart (Novolog Insulin Sliding Scale) 0 units SUBQ ACHS [facility] PRN Reason: Protocol Stop: 07/17/17 07:29 Last Admin: 05/20/17 14:14 Dose: Not Given Isosorbide Dinitrate (Isordil) 20 mg PO TID [facility] Stop: 07/17/17 13:59 Last Admin: 05/20/17 08:40 Dose: 20 mg Metoprolol Tartrate (Lopressor) 50 mg PO BID [facility] Stop: 07/17/17 16:59 Last Admin: 05/20/17 08:39 Dose: 50 mg Miscellaneous (Vancomycin Iv Per Pharmacy) 1 ea [facility] PRN PRN PRN Reason: PROTOCOL Stop: 07/17/17 03:45 Simvastatin (Zocor) 20 mg PO HS [facility] PRN Reason: Protocol Stop: 07/17/17 20:59 Last Admin: 05/19/17 21:49 Dose: 20 mg Lab - Result Diagrams 05/23/17 06:51 05/23/17 06:51 WBC down to 14 S/P I/D Left scapular abscess continue ABx switched to daily PD exchanges possible dc today Nutritional Asmnt/Malnutr-PDOC - Dietary Evaluation Malnutrition Findings (Please click <Entered> for more info): Nutritional Asmnt/Malnutrition Start: 05/20/17 15: 35 Text: Status: Complete Freq: Document 05/20/17 15:35 [facility] (Rec: 05/20/17 15:52 [id number] Nutritional Asmnt/Malnutrition Patient General Information Nutritional Screening High Risk Consult Diagnosis right thumb cellulitis Pertinent Medical Hx/Surgical Hx CAD, CHF, HTN, weakness, chronic renal insuff, benign prostatic enlarg, on PD, DM, ulcer Subjective Information Consult received for DM, non- healing wounds, open wounds. Pt seen resting in bed at time of visit. Per EMR, PO intake 50-100%. Pt on peritoneal dialysis noted. Current Diet Order/ Nutrition Support ccho, low sodium Pertinent Medications D50w, novolog Pertinent Labs 05/20 Na 128, Cl 96, BUN 93, Cr 6.9, GLucose 446, POC 215 Nutritional Hx/Data Height 1.73 m Height (Calculated Centimeters) 172.7 Current Weight (lbs) 73.936 kg Weight (Calculated Kilograms) 73.9 Weight (Calculated Grams) 12615.6 Body Mass Index (BMI) 24.7 GI Symptoms GI Symptoms None Last BM 05/19 Difficult in: None Skin Integrity/Comment: reddened to left shoulder back laceration ulceration to right anterior leg Current %PO Good (75-100%) Estimated Nutritional Goals BEE in Kcals: Using Current wt Calories/Kcals/Kg 25-30 Kcals Calculated 6308-9642 Protein: Using Current wt Protein g/k-1.2 Protein Calculated 74-89 Fluid: ml 1850-2220ml (1ml/kcal) Nutritional Problem 1. Problem Problem altered nutrition related lab values Etiology hx of chronic renal insuff, DM Signs/Symptoms: BUN 93, Cr 6.9, GLucose 446, POC 215 Malnutrition Alert Protein-Calorie Malnutrition N/A Is there a minimum of two criteria No selected? Query Text:Check all the applicable criteria. A minimum of two criteria are recommended for diagnosis of either severe or non-severe malnutrition. Intervention/Recommendation Comments 1. Continue with current diet as ordered. Recommend Argina[place] 1pk daily to heal wound healing 2. MD to consider vit c and zinc to help wound healing 3. Monitor PO intake, wt, labs and skin integrity 4. F/U as moderate risk in 3-5 days, 05/23-05/25. PO check Expected Outcomes/Goals Expected Outcomes/Goals 1. PO intake to meet at least 75% of nutritional needs. 2. Wt stability, skin to remain intact, labs to approach WNL.
--- NOTE | 2017-05-23 16:14 | Infectious Disease Prog Note ---
Infectious Disease Subjective - Review of Systems Service Date: 05/23/17 Subjective: I and D of the leg wound and upper back done by Dr Payton yesterday., no fever. Infectious Disease Objective - Results Result Diagrams: 05/23/17 06:51 05/23/17 06:51 Recent Labs: Laboratory Last Values WBC 14.0 Th/cmm (4.8-10.8) H 05/23/17 06:51 RBC 2.96 Mil/cmm (3.80-5.80) L 05/23/17 06:51 Hgb 9.3 gm/dL (12-16) L 05/23/17 06:51 Hct 27.8 % (41.0-60) L 05/23/17 06:51 MCV 94.1 fl (80-99) 05/23/17 06:51 MCH 31.4 pg (27.0-31.0) H 05/23/17 06:51 MCHC Differential 33.3 pg (28.0-36.0) 05/23/17 06:51 RDW 13.4 % (11.5-20.0) 05/23/17 06:51 Plt Count 380 Th/cmm (150-400) 05/23/17 06:51 MPV 7.9 fl 05/23/17 06:51 Neutrophils % MICA SPLITTER 05/23/17 06:51 Band Neutrophils % 10 % (0-10) 05/17/17 23:45 Lymphocytes % MICA SPLITTER 05/23/17 06:51 Monocytes % MICA SPLITTER 05/23/17 06:51 Eosinophils % MICA SPLITTER 05/23/17 06:51 Basophils % MICA SPLITTER 05/23/17 06:51 Neutrophils (Manual) 78 % (40-80) 05/23/17 06:51 Lymphocytes 8 % (20-50) L 05/23/17 06:51 Monocytes 9 % (2-10) 05/23/17 06:51 Eosinophils 3 % (0-5) 05/23/17 06:51 Basophils 2 % (0-3) 05/23/17 06:51 Platelet Estimate ADEQUATE (NORMAL) 05/23/17 06:51 ESR 86 mm/hr (0-20) H 05/21/17 10:40 PT 10.3 SECONDS (9.5-11.5) 05/21/17 10:40 INR 0.99 (0.5-1.4) 05/21/17 10:40 PTT (Actin FS) 28.8 SECONDS (26.0-38.0) 05/21/17 10:40 Sodium 131 mEq/L (136-145) L 05/23/17 06:51 Potassium 3.8 mEq/L (3.5-5.1) 05/23/17 06:51 Chloride 97 mEq/L (98-107) L 05/23/17 06:51 Carbon Dioxide 24.4 mEq/L (21.0-31.0) 05/23/17 06:51 Anion Gap 13.4 (7.0-16.0) 05/23/17 06:51 BUN 75 mg/dL (7-25) H 05/23/17 06:51 Creatinine 6.2 mg/dL (0.7-1.3) H* 05/23/17 06:51 Est GFR ( Amer) TNP 05/23/17 06:51 Est GFR (Non-Af Amer) TNP 05/23/17 06:51 BUN/Creatinine Ratio 12.1 05/23/17 06:51 Glucose 196 mg/dL (70-105) H 05/23/17 06:51 POC Glucose 269 MG/DL (70 - 105) H 05/23/17 11:33 Hemoglobin A1c % 8.4 % (4.0-6.0) H 05/17/17 23:45 Whole Bld Lactic Acid 1.72 mmol/L (0.60-1.99) 05/17/17 23:45 Calcium 8.5 mg/dL (8.6-10.3) L 05/23/17 06:51 Phosphorus 3.6 mg/dL (2.5-5.0) 05/17/17 23:45 Magnesium 2.3 mg/dL (1.9-2.7) 05/22/17 06:47 Total Bilirubin 0.3 mg/dL (0.3-1.0) 05/23/17 06:51 Direct Bilirubin 0.11 mg/dL (0.0-0.2) 05/17/17 23:45 AST 11 U/L (13-39) L 05/23/17 06:51 ALT 11 U/L (7-52) 05/23/17 06:51 Alkaline Phosphatase 55 U/L (34-104) 05/23/17 06:51 Troponin I 0.06 ng/mL (0.01-0.05) H 05/17/17 23:45 C-Reactive Protein 12.5 mg/dL (0.0-0.9) H 05/21/17 10:40 B-Natriuretic Peptide 287.0 pg/mL (5.0-100.0) H 05/17/17 23:45 Total Protein 6.1 gm/dL (6.0-8.3) 05/23/17 06:51 Albumin 2.6 gm/dL (4.2-5.5) L 05/23/17 06:51 Globulin 3.5 gm/dL 05/23/17 06:51 Albumin/Globulin Ratio 0.7 (1.0-1.8) L 05/23/17 06:51 TSH 0.93 uIU/ml (0.34-5.60) 05/18/17 05:00 Urine Source MIDSTREAM 05/18/17 14:30 Urine Color YELLOW 05/18/17 14:30 Urine Clarity CLEAR (CLEAR) 05/18/17 14:30 Urine pH 7.5 (4.6 - 8.0) 05/18/17 14:30 Ur Specific [place] 1.010 (1.005-1.030) 05/18/17 14:30 Urine Protein 100 mg/dL (NEGATIVE) H 05/18/17 14:30 Urine Glucose (UA) 100 mg/dL (NEGATIVE) H 05/18/17 14:30 Urine Ketones NEGATIVE mg/dL (NEGATIVE) 05/18/17 14:30 Urine Blood TRACE (NEGATIVE) 05/18/17 14:30 Urine Nitrate NEGATIVE (NEGATIVE) 05/18/17 14:30 Urine Bilirubin NEGATIVE (NEGATIVE) 05/18/17 14:30 Urine Urobilinogen 0.2 E.U./dL (0.2 - 1.0) 05/18/17 14:30 Ur Leukocyte Esterase NEGATIVE (NEGATIVE) 05/18/17 14:30 Urine RBC 2-5 /hpf (0-5) H 05/18/17 14:30 Urine WBC NONE SEEN /hpf (0-5) 05/18/17 14:30 Ur Epithelial Cells NONE SEEN /lpf (FEW) 05/18/17 14:30 Urine Bacteria NONE SEEN /hpf (NONE SEEN) 05/18/17 14:30 Fluid Source PERITONEAL 05/18/17 22:00 Fluid Color COLORLESS 05/18/17 22:00 Fluid Appearance CLEAR 05/18/17 22:00 Fluid WBC 39 /cumm 05/18/17 22:00 Fluid RBC 5 /cumm 05/18/17 22:00 Fluid Neutrophils 76 % 05/18/17 22:00 Fluid Lymphocytes 22 % 05/18/17 22:00 Fluid Monocytes 2 % 05/18/17 22:00 Fluid Plasma Cells FEW 05/18/17 22:00 Body Fluid Clot NO 05/18/17 22:00 Fluid Glucose 1686.0 mg/dL 05/20/17 22:00 Fluid Total Protein < 3.0 g/dL 05/20/17 22:00 Fluid LDH 38 U/L 05/20/17 22:00 Fluid Amylase 2 U/L 05/20/17 22:00 Fluid Lipase TNP 05/20/17 22:00 Random Vancomycin 15.8 ug/mL (5.0-40.0) 05/22/17 06:47 - Physical Exam Vitals and I&O: Vital Signs Temp 97.5 F 05/23/17 12:00 Pulse 62 05/23/17 14:00 Resp 18 05/23/17 12:00 BP 118/57 05/23/17 14:00 Pulse Ox 96 05/23/17 12:00 Intake & Output 05/22/17 05/23/17 05/23/17 18:59 06:59 18:59 Intake Total 700 340 Output Total 40 30 Balance 660 310 Weight (lbs) 73.936 kg 73.936 kg Intake: Intake, IV Amount 100 100 Piperacillin Sodium/ 100 100 Tazobact 2.25 gm In Sodium Chloride 0.9% 50 ml @ 100 mls/hr IV Q6HR [facility] Rx#:[id number] Oral 600 240 Output: Drainage 40 30 Left Shoulder 40 30 Stool 0 Other: # Voids 1 1 # Bowel Movements 0 0 Active Medications: Current Medications Amlodipine Besylate (Norvasc) 5 mg PO DAILY [facility] Stop: 07/18/17 08:59 Last Admin: 05/23/17 09:05 Dose: 5 mg Aspirin (Aspirin Chewable) 81 mg PO DAILY [facility] Stop: 05/13/18 09:29 Last Admin: 05/23/17 09:02 Dose: 81 mg Brimonidine Tartrate (Alphagan 0.1% Ophth Soln) 1 drop EACH EYE HS [facility] Stop: 07/17/17 20:59 Last Admin: 05/22/17 21:17 Dose: 1 drop [place] Oil/[place] Balsam/Trypsin (Venelex) 1 appl TP DAILY [facility] Stop: 07/19/17 16:59 Last Admin: 05/23/17 09:06 Dose: 1 appl Cilostazol (Pletal) 50 mg PO DAILY [facility] Stop: 07/22/17 09:29 Last Admin: 05/23/17 13:59 Dose: 50 mg Dextrose (D50w) 50 ml IVP PRN PRN PRN Reason: Blood Glucose less than 70 Stop: 07/17/17 03:40 Dextrose (Glutose 40%) 18.75 gm PO PRN PRN PRN Reason: Blood Glucose less than 70 Stop: 07/17/17 03:40 Famotidine (Pepcid) 40 mg PO DAILY [facility] Stop: 07/18/17 08:59 Last Admin: 05/23/17 09:02 Dose: 40 mg Gabapentin (Neurontin) 100 mg PO DAILY [facility] Stop: 07/18/17 08:59 Last Admin: 05/23/17 09:02 Dose: 100 mg Glucagon (Glucagen) 1 mg IM PRN PRN PRN Reason: Blood Glucose less than 70 Stop: 07/17/17 03:40 Hydralazine HCl (Apresoline) 25 mg PO BID [facility] Stop: 07/17/17 16:59 Last Admin: 05/23/17 09:03 Dose: 25 mg Piperacillin Sod/Tazobactam (Sod 2.25 gm/ Sodium Chloride) 50 mls @ 100 mls/hr IV Q6HR [facility] Stop: 07/21/17 11:59 Last Admin: 05/23/17 12:17 Dose: 100 mls/hr Insulin Aspart (Novolog Insulin Sliding Scale) 0 units SUBQ ACHS [facility] PRN Reason: Protocol Stop: 07/17/17 07:29 Last Admin: 05/23/17 12:17 Dose: 6 units Insulin Detemir (Levemir Insulin) 15 units SUBQ HS [facility] PRN Reason: Protocol Stop: 07/21/17 20:59 Last Admin: 05/22/17 21:12 Dose: 15 units Isosorbide Dinitrate (Isordil) 20 mg PO TID [facility] Stop: 07/17/17 13:59 Last Admin: 05/23/17 14:00 Dose: 20 mg Metoprolol Tartrate (Lopressor) 50 mg PO BID [facility] Stop: 07/17/17 16:59 Last Admin: 05/23/17 09:05 Dose: 50 mg Miscellaneous (Vancomycin Iv Per Pharmacy) 1 ea [facility] PRN PRN PRN Reason: PROTOCOL Stop: 07/17/17 03:45 Prazosin HCl (Minipress) 2 mg PO DAILY [facility] Stop: 07/21/17 08:59 Last Admin: 05/23/17 09:05 Dose: 2 mg Simvastatin (Zocor) 20 mg PO HS [facility] PRN Reason: Protocol Stop: 07/17/17 20:59 Last Admin: 05/22/17 21:17 Dose: 20 mg Temazepam (Restoril) 15 mg PO HS PRN; Protocol PRN Reason: Insomnia Stop: 07/19/17 20:59 Tramadol HCl (Ultram) 50 mg PO Q4H PRN PRN Reason: pain management Stop: 07/19/17 14:16 Last Admin: 05/21/17 10:59 Dose: 50 mg General: no acute distress, well developed, well nourished HEENT: atraumatic, normocephalic, PERRLA Neck: supple Cardiovascular: S1S2, regular Lungs: clear to auscultation bilaterally, clear to percussion Abdomen: soft, no tender, no distended Extremities: no cyanosis, no clubbing, no edema Neurological: awake, alert, oriented Skin: intact - Procedures Procedures: Procedures Procedure Code Date CACHORRO SUBQ TISSUE 20 SQ CM/< [id number] 05/18/17 DRAINAGE OF HEAD, OPEN APPROACH [id number] 05/18/17 EXCISION OF R LOW LEG SUBCU/FASCIA, OPEN APPROACH [id number] 05/18/17 Infectious Disease Assmt/Plan - Assessment Assessment: 1. Leukocytosis. r/o abscess versus hematoma of the left upper back. 2. Right leg wound. 3. Right arm cellulitis, improved. 4. Chronic kidney disease stage 5, on peritoneal dialysis. 5. Diabetes mellitus type 2. 6. Hypertension. - Plan Plan: Continue Zosyn, and vancomycin. may dc patient on vanco IV and rocephin,. Wound care. Nutritional Asmnt/Malnutr-PDOC - Dietary Evaluation Malnutrition Findings (Please click <Entered> for more info): Nutritional Asmnt/Malnutrition Start: 05/20/17 15: 35 Text: Status: Complete Freq: Document 05/20/17 15:35 LCHENG (Rec: 05/20/17 15:52 LCHENG [email or web address]) Nutritional Asmnt/Malnutrition Patient General Information Nutritional Screening High Risk Consult Diagnosis right thumb cellulitis Pertinent Medical Hx/Surgical Hx CAD, CHF, HTN, weakness, chronic renal insuff, benign prostatic enlarg, on PD, DM, ulcer Subjective Information Consult received for DM, non- healing wounds, open wounds. Pt seen resting in bed at time of visit. Per EMR, PO intake 50-100%. Pt on peritoneal dialysis noted. Current Diet Order/ Nutrition Support ccho, low sodium Pertinent Medications D50w, novolog Pertinent Labs 05/20 Na 128, Cl 96, BUN 93, Cr 6.9, GLucose 446, POC 215 Nutritional Hx/Data Height 1.73 m Height (Calculated Centimeters) 172.7 Current Weight (lbs) 73.936 kg Weight (Calculated Kilograms) 73.9 Weight (Calculated Grams) 81260.6 Body Mass Index (BMI) 24.7 GI Symptoms GI Symptoms None Last BM 05/19 Difficult in: None Skin Integrity/Comment: reddened to left shoulder back laceration ulceration to right anterior leg Current %PO Good (75-100%) Estimated Nutritional Goals BEE in Kcals: Using Current wt Calories/Kcals/Kg 25-30 Kcals Calculated 9450-6487 Protein: Using Current wt Protein g/k-1.2 Protein Calculated 74-89 Fluid: ml 1850-2220ml (1ml/kcal) Nutritional Problem 1. Problem Problem altered nutrition related lab values Etiology hx of chronic renal insuff, DM Signs/Symptoms: BUN 93, Cr 6.9, GLucose 446, POC 215 Malnutrition Alert Protein-Calorie Malnutrition N/A Is there a minimum of two criteria No selected? Query Text:Check all the applicable criteria. A minimum of two criteria are recommended for diagnosis of either severe or non-severe malnutrition. Intervention/Recommendation Comments 1. Continue with current diet as ordered. Recommend Arginaid 1pk daily to heal wound healing 2. MD to consider vit c and zinc to help wound healing 3. Monitor PO intake, wt, labs and skin integrity 4. F/U as moderate risk in 3-5 days, 05/23-05/25. PO check Expected Outcomes/Goals Expected Outcomes/Goals 1. PO intake to meet at least 75% of nutritional needs. 2. Wt stability, skin to remain intact, labs to approach WNL.
--- NOTE | 2017-05-23 16:24 | Infectious Disease Prog Note ---
Infectious Disease Subjective - Review of Systems Service Date: 05/23/17 Subjective: I and D of the leg wound and upper back done by Dr Payton yesterday., no fever. Infectious Disease Objective - Results Result Diagrams: 05/23/17 06:51 05/23/17 06:51 Recent Labs: Laboratory Last Values WBC 14.0 Th/cmm (4.8-10.8) H 05/23/17 06:51 RBC 2.96 Mil/cmm (3.80-5.80) L 05/23/17 06:51 Hgb 9.3 gm/dL (12-16) L 05/23/17 06:51 Hct 27.8 % (41.0-60) L 05/23/17 06:51 MCV 94.1 fl (80-99) 05/23/17 06:51 MCH 31.4 pg (27.0-31.0) H 05/23/17 06:51 MCHC Differential 33.3 pg (28.0-36.0) 05/23/17 06:51 RDW 13.4 % (11.5-20.0) 05/23/17 06:51 Plt Count 380 Th/cmm (150-400) 05/23/17 06:51 MPV 7.9 fl 05/23/17 06:51 Neutrophils % DYNAMICS AX TECHNICAL ARCHITECT 05/23/17 06:51 Band Neutrophils % 10 % (0-10) 05/17/17 23:45 Lymphocytes % DYNAMICS AX TECHNICAL ARCHITECT 05/23/17 06:51 Monocytes % DYNAMICS AX TECHNICAL ARCHITECT 05/23/17 06:51 Eosinophils % DYNAMICS AX TECHNICAL ARCHITECT 05/23/17 06:51 Basophils % DYNAMICS AX TECHNICAL ARCHITECT 05/23/17 06:51 Neutrophils (Manual) 78 % (40-80) 05/23/17 06:51 Lymphocytes 8 % (20-50) L 05/23/17 06:51 Monocytes 9 % (2-10) 05/23/17 06:51 Eosinophils 3 % (0-5) 05/23/17 06:51 Basophils 2 % (0-3) 05/23/17 06:51 Platelet Estimate ADEQUATE (NORMAL) 05/23/17 06:51 ESR 86 mm/hr (0-20) H 05/21/17 10:40 PT 10.3 SECONDS (9.5-11.5) 05/21/17 10:40 INR 0.99 (0.5-1.4) 05/21/17 10:40 PTT (Actin FS) 28.8 SECONDS (26.0-38.0) 05/21/17 10:40 Sodium 131 mEq/L (136-145) L 05/23/17 06:51 Potassium 3.8 mEq/L (3.5-5.1) 05/23/17 06:51 Chloride 97 mEq/L (98-107) L 05/23/17 06:51 Carbon Dioxide 24.4 mEq/L (21.0-31.0) 05/23/17 06:51 Anion Gap 13.4 (7.0-16.0) 05/23/17 06:51 BUN 75 mg/dL (7-25) H 05/23/17 06:51 Creatinine 6.2 mg/dL (0.7-1.3) H* 05/23/17 06:51 Est GFR ( Amer) TNP 05/23/17 06:51 Est GFR (Non-Af Amer) TNP 05/23/17 06:51 BUN/Creatinine Ratio 12.1 05/23/17 06:51 Glucose 196 mg/dL (70-105) H 05/23/17 06:51 POC Glucose 269 MG/DL (70 - 105) H 05/23/17 11:33 Hemoglobin A1c % 8.4 % (4.0-6.0) H 05/17/17 23:45 Whole Bld Lactic Acid 1.72 mmol/L (0.60-1.99) 05/17/17 23:45 Calcium 8.5 mg/dL (8.6-10.3) L 05/23/17 06:51 Phosphorus 3.6 mg/dL (2.5-5.0) 05/17/17 23:45 Magnesium 2.3 mg/dL (1.9-2.7) 05/22/17 06:47 Total Bilirubin 0.3 mg/dL (0.3-1.0) 05/23/17 06:51 Direct Bilirubin 0.11 mg/dL (0.0-0.2) 05/17/17 23:45 AST 11 U/L (13-39) L 05/23/17 06:51 ALT 11 U/L (7-52) 05/23/17 06:51 Alkaline Phosphatase 55 U/L (34-104) 05/23/17 06:51 Troponin I 0.06 ng/mL (0.01-0.05) H 05/17/17 23:45 C-Reactive Protein 12.5 mg/dL (0.0-0.9) H 05/21/17 10:40 B-Natriuretic Peptide 287.0 pg/mL (5.0-100.0) H 05/17/17 23:45 Total Protein 6.1 gm/dL (6.0-8.3) 05/23/17 06:51 Albumin 2.6 gm/dL (4.2-5.5) L 05/23/17 06:51 Globulin 3.5 gm/dL 05/23/17 06:51 Albumin/Globulin Ratio 0.7 (1.0-1.8) L 05/23/17 06:51 TSH 0.93 uIU/ml (0.34-5.60) 05/18/17 05:00 Urine Source MIDSTREAM 05/18/17 14:30 Urine Color YELLOW 05/18/17 14:30 Urine Clarity CLEAR (CLEAR) 05/18/17 14:30 Urine pH 7.5 (4.6 - 8.0) 05/18/17 14:30 Ur Specific [place] 1.010 (1.005-1.030) 05/18/17 14:30 Urine Protein 100 mg/dL (NEGATIVE) H 05/18/17 14:30 Urine Glucose (UA) 100 mg/dL (NEGATIVE) H 05/18/17 14:30 Urine Ketones NEGATIVE mg/dL (NEGATIVE) 05/18/17 14:30 Urine Blood TRACE (NEGATIVE) 05/18/17 14:30 Urine Nitrate NEGATIVE (NEGATIVE) 05/18/17 14:30 Urine Bilirubin NEGATIVE (NEGATIVE) 05/18/17 14:30 Urine Urobilinogen 0.2 E.U./dL (0.2 - 1.0) 05/18/17 14:30 Ur Leukocyte Esterase NEGATIVE (NEGATIVE) 05/18/17 14:30 Urine RBC 2-5 /hpf (0-5) H 05/18/17 14:30 Urine WBC NONE SEEN /hpf (0-5) 05/18/17 14:30 Ur Epithelial Cells NONE SEEN /lpf (FEW) 05/18/17 14:30 Urine Bacteria NONE SEEN /hpf (NONE SEEN) 05/18/17 14:30 Fluid Source PERITONEAL 05/18/17 22:00 Fluid Color COLORLESS 05/18/17 22:00 Fluid Appearance CLEAR 05/18/17 22:00 Fluid WBC 39 /cumm 05/18/17 22:00 Fluid RBC 5 /cumm 05/18/17 22:00 Fluid Neutrophils 76 % 05/18/17 22:00 Fluid Lymphocytes 22 % 05/18/17 22:00 Fluid Monocytes 2 % 05/18/17 22:00 Fluid Plasma Cells FEW 05/18/17 22:00 Body Fluid Clot NO 05/18/17 22:00 Fluid Glucose 1686.0 mg/dL 05/20/17 22:00 Fluid Total Protein < 3.0 g/dL 05/20/17 22:00 Fluid LDH 38 U/L 05/20/17 22:00 Fluid Amylase 2 U/L 05/20/17 22:00 Fluid Lipase TNP 05/20/17 22:00 Random Vancomycin 15.8 ug/mL (5.0-40.0) 05/22/17 06:47 - Physical Exam Vitals and I&O: Vital Signs Temp 97.5 F 05/23/17 12:00 Pulse 62 05/23/17 14:00 Resp 18 05/23/17 12:00 BP 118/57 05/23/17 14:00 Pulse Ox 96 05/23/17 12:00 Intake & Output 05/22/17 05/23/17 05/23/17 18:59 06:59 18:59 Intake Total 700 340 Output Total 40 30 Balance 660 310 Weight (lbs) 73.936 kg 73.936 kg Intake: Intake, IV Amount 100 100 Piperacillin Sodium/ 100 100 Tazobact 2.25 gm In Sodium Chloride 0.9% 50 ml @ 100 mls/hr IV Q6HR [facility] Rx#:[id number] Oral 600 240 Output: Drainage 40 30 Left Shoulder 40 30 Stool 0 Other: # Voids 1 1 # Bowel Movements 0 0 Active Medications: Current Medications Amlodipine Besylate (Norvasc) 5 mg PO DAILY [facility] Stop: 07/18/17 08:59 Last Admin: 05/23/17 09:05 Dose: 5 mg Aspirin (Aspirin Chewable) 81 mg PO DAILY [facility] Stop: 05/13/18 09:29 Last Admin: 05/23/17 09:02 Dose: 81 mg Brimonidine Tartrate (Alphagan 0.1% Ophth Soln) 1 drop EACH EYE HS [facility] Stop: 07/17/17 20:59 Last Admin: 05/22/17 21:17 Dose: 1 drop [place] Oil/Mauritanian Balsam/Trypsin (Venelex) 1 appl TP DAILY [facility] Stop: 07/19/17 16:59 Last Admin: 05/23/17 09:06 Dose: 1 appl Cilostazol (Pletal) 50 mg PO DAILY [facility] Stop: 07/22/17 09:29 Last Admin: 05/23/17 13:59 Dose: 50 mg Dextrose (D50w) 50 ml IVP PRN PRN PRN Reason: Blood Glucose less than 70 Stop: 07/17/17 03:40 Dextrose (Glutose 40%) 18.75 gm PO PRN PRN PRN Reason: Blood Glucose less than 70 Stop: 07/17/17 03:40 Famotidine (Pepcid) 40 mg PO DAILY [facility] Stop: 07/18/17 08:59 Last Admin: 05/23/17 09:02 Dose: 40 mg Gabapentin (Neurontin) 100 mg PO DAILY [facility] Stop: 07/18/17 08:59 Last Admin: 05/23/17 09:02 Dose: 100 mg Glucagon (Glucagen) 1 mg IM PRN PRN PRN Reason: Blood Glucose less than 70 Stop: 07/17/17 03:40 Hydralazine HCl (Apresoline) 25 mg PO BID [facility] Stop: 07/17/17 16:59 Last Admin: 05/23/17 09:03 Dose: 25 mg Piperacillin Sod/Tazobactam (Sod 2.25 gm/ Sodium Chloride) 50 mls @ 100 mls/hr IV Q6HR [facility] Stop: 07/21/17 11:59 Last Admin: 05/23/17 12:17 Dose: 100 mls/hr Insulin Aspart (Novolog Insulin Sliding Scale) 0 units SUBQ ACHS [facility] PRN Reason: Protocol Stop: 07/17/17 07:29 Last Admin: 05/23/17 12:17 Dose: 6 units Insulin Detemir (Levemir Insulin) 15 units SUBQ HS [facility] PRN Reason: Protocol Stop: 07/21/17 20:59 Last Admin: 05/22/17 21:12 Dose: 15 units Isosorbide Dinitrate (Isordil) 20 mg PO TID [facility] Stop: 07/17/17 13:59 Last Admin: 05/23/17 14:00 Dose: 20 mg Metoprolol Tartrate (Lopressor) 50 mg PO BID [facility] Stop: 07/17/17 16:59 Last Admin: 05/23/17 09:05 Dose: 50 mg Miscellaneous (Vancomycin Iv Per Pharmacy) 1 ea MC PRN PRN PRN Reason: PROTOCOL Stop: 07/17/17 03:45 Prazosin HCl (Minipress) 2 mg PO DAILY [facility] Stop: 07/21/17 08:59 Last Admin: 05/23/17 09:05 Dose: 2 mg Simvastatin (Zocor) 20 mg PO HS [facility] PRN Reason: Protocol Stop: 07/17/17 20:59 Last Admin: 05/22/17 21:17 Dose: 20 mg Temazepam (Restoril) 15 mg PO HS PRN; Protocol PRN Reason: Insomnia Stop: 07/19/17 20:59 Tramadol HCl (Ultram) 50 mg PO Q4H PRN PRN Reason: pain management Stop: 07/19/17 14:16 Last Admin: 05/21/17 10:59 Dose: 50 mg General: no acute distress, well developed, well nourished HEENT: atraumatic, normocephalic, PERRLA Neck: supple Cardiovascular: S1S2, regular Lungs: clear to auscultation bilaterally, clear to percussion Abdomen: soft, no tender, no distended, no mass Extremities: no cyanosis, no clubbing Neurological: awake, alert, oriented Skin: other (right leg wound and left upper back wound.) - Procedures Procedures: Procedures Procedure Code Date CACHORRO SUBQ TISSUE 20 SQ CM/< 33335 05/18/17 DRAINAGE OF HEAD, OPEN APPROACH [id number] 05/18/17 EXCISION OF R LOW LEG SUBCU/FASCIA, OPEN APPROACH [id number] 05/18/17 Infectious Disease Assmt/Plan - Assessment Assessment: 1. Leukocytosis, improving 2/2 abscess of the left upper back. 2. Right leg wound. 3. Right arm cellulitis, improved. 4. Chronic kidney disease stage 5, on peritoneal dialysis. 5. Diabetes mellitus type 2. 6. Hypertension. 7. Abscess of left upper back. - Plan Plan: Continue Zosyn, and vancomycin. may dc patient on vanco IV and rocephin,. Wound care. Nutritional Asmnt/Malnutr-PDOC - Dietary Evaluation Malnutrition Findings (Please click <Entered> for more info): Nutritional Asmnt/Malnutrition Start: 05/20/17 15: 35 Text: Status: Complete Freq: Document 05/20/17 15:35 JOHANNA (Rec: 05/20/17 15:52 [facility] Nutritional Asmnt/Malnutrition Patient General Information Nutritional Screening High Risk Consult Diagnosis right thumb cellulitis Pertinent Medical Hx/Surgical Hx CAD, CHF, HTN, weakness, chronic renal insuff, benign prostatic enlarg, on PD, DM, ulcer Subjective Information Consult received for DM, non- healing wounds, open wounds. Pt seen resting in bed at time of visit. Per EMR, PO intake 50-100%. Pt on peritoneal dialysis noted. Current Diet Order/ Nutrition Support ccho, low sodium Pertinent Medications D50w, novolog Pertinent Labs 05/20 Na 128, Cl 96, BUN 93, Cr 6.9, GLucose 446, POC 215 Nutritional Hx/Data Height 1.73 m Height (Calculated Centimeters) 172.7 Current Weight (lbs) 73.936 kg Weight (Calculated Kilograms) 73.9 Weight (Calculated Grams) 26696.6 Body Mass Index (BMI) 24.7 GI Symptoms GI Symptoms None Last BM 05/19 Difficult in: None Skin Integrity/Comment: reddened to left shoulder back laceration ulceration to right anterior leg Current %PO Good (75-100%) Estimated Nutritional Goals BEE in Kcals: Using Current wt Calories/Kcals/Kg 25-30 Kcals Calculated 9175-0639 Protein: Using Current wt Protein g/k-1.2 Protein Calculated 74-89 Fluid: ml 1850-2220ml (1ml/kcal) Nutritional Problem 1. Problem Problem altered nutrition related lab values Etiology hx of chronic renal insuff, DM Signs/Symptoms: BUN 93, Cr 6.9, GLucose 446, POC 215 Malnutrition Alert Protein-Calorie Malnutrition N/A Is there a minimum of two criteria No selected? Query Text:Check all the applicable criteria. A minimum of two criteria are recommended for diagnosis of either severe or non-severe malnutrition. Intervention/Recommendation Comments 1. Continue with current diet as ordered. Recommend Arginaid 1pk daily to heal wound healing 2. MD to consider vit c and zinc to help wound healing 3. Monitor PO intake, wt, labs and skin integrity 4. F/U as moderate risk in 3-5 days, 05/23-05/25. PO check Expected Outcomes/Goals Expected Outcomes/Goals 1. PO intake to meet at least 75% of nutritional needs. 2. Wt stability, skin to remain intact, labs to approach WNL.
--- NOTE | 2017-05-23 17:36 | Discharge Summary ---
DATE OF DISCHARGE: 05/23/2017 DATE OF DISCHARGE: 05/23/2017. ADMITTING DIAGNOSES: 1. Nonhealing left proximal lower extremity ulcer. 2. Leukocytosis. 3. Hyponatremia. 4. Right arm/thumb pain. SECONDARY DIAGNOSES: 1. End-stage renal disease on peritoneal dialysis. 2. Essential hypertension. 3. Insulin-dependent diabetes. 4. History of coronary artery disease, status post coronary artery bypass graft. 5. History of peripheral neuropathy. 6. History of chronic anemia. DISCHARGE DIAGNOSES: 1. Leukocytosis improved. 2. Left lower extremity nonhealing/chronic ulcer, status post debridement. 3. Complex left scapular abscess, status post I and D with drainage tube placement. 4. PAD. 5. Hyponatremia, stable. CONSULTANTS: Dr. Boggs, Nephrology; Dr. Omar Benson, ID; and Dr. Payton surgery. MAJOR PROCEDURES: There was right wrist series done on 05/17 showing slight irregularity of the distal radius. Findings favor old trauma. There was a right upper extremity venous showing no evidence of DVT, done 05/19/2017. On 05/20/2017, he underwent a right lower extremity arterial duplex showing moderate to severe atherosclerotic vascular disease of the right side. No sonographic evidence of occlusion. Moderate to severe diffuse bilateral atherosclerotic changes somewhat more pronounced below the knee. There was another arterial dupplex on 05/21/2017-showing bilateral lower extremity duplex arterial done showing moderate to severe diffuse bilateral atherosclerotic changes somewhat more pronounced below the knee, particularly on the left side. Bilateral lower extremity venous duplex done on the 05/21/2017, negative for DVT. On 05/22/2017, he underwent an incision and drainage of abscess in the left scapular area and excisional debridement of the right leg ulcer without any complications. Bone scan on the lower extremities 05/21/2017 showing slight increased uptake in the left proximal tibia on the flow, blood pool and delayed images. There is also additional mild nonspecific delayed uptake in the proximal right tibia. DISCHARGE MEDICATIONS: 1. Vancomycin per pharmacy x 7 days. 2. Rocephin per pharmacy x 7 days. 3. Aspirin 81 every day. 4. Lantus 10 units at bedtime. 5. Lispro before meals and at bedtime, sliding scale. 6. Lumigan eyedrops at bedtime. 7. Clonidine 0.3 b.i.d. 8. Famotidine 40 every day. 9. Gabapentin 100 every day. 10. Hydralazine 25 b.i.d. 11. Imdur 20 t.i.d. 12. Metoprolol 50 b.i.d. 13. Nicardipine 20 mg every day. 13. Prazosin 2 mg every day. 14. Simvastatin 20 at bedtime. 15. Pletal 50 mg daily. BRIEF HOSPITAL COURSE: The patient is a 77-year-old gentleman with multiple medical problems as delineated above. The patient apparently has had this nonhealing right lower extremity ulcer for a few months and saw his primary care doctor -- Dr. Vazquez -- about 2 weeks ago, and at that time, he was treated with p.o. antibiotics and Bactroban ointment with minimal improvement of his ulcer. He presented again to Dr. Vazquez's office prior to admission and patient was sent to the ED where he was noted to have a white count of 20,000 and sodium level of 126. He initially had a troponin level 0.06 with other pertinent findings including a left upper back area of growth, which was red and tender to palpation with induration consistent with abscess. He was admitted to tele and placed on vancomycin and Zosyn as well as daily wound care. His vital signs did remain stable and by the 05/20/2017, his white count had improved slightly at 18.5. At that time, the Rocephin was changed to Zosyn and a surgical consult was placed as well. Given his peritoneal dialysis regimen, Nephrology consult was also ordered with continuation of his peritoneal dialysis by hospital day #2. He underwent the above-mentioned procedures which yielded severe PAD, mostly small vessel and also underwent a bone scan, which showed no evidence of osteomyelitis. The patient was taken to the OR and underwent I/D of the abscess and debridement of the LLE wound without any complications. A drainage tube was left on the left upper back, given the extent of the abscess. Postop patient's white count improved to 14,000 and his vital signs have remained stable. CONDITION ON DISCHARGE: Stable. DISPOSITION: The patient will be discharged with home health for IV antibiotics for 7 days and daily wound care. He was instructed to follow up with primary care doctor, Dr. Vazquez within 2-3 days and will also see Dr. Payton as an outpatient for drainage tube removal in 1 week. [facility]# [id number] [place]
--- NOTE | 2017-05-27 16:07 | Pathology Report ---
[id number] Collection Date: 05/22/2017 Surgeon: Dr. William Payton Specimen Description: Debrided tissue, right leg ulcer. Gross Description: Received in formalin is a 3.0 x 1.5 x 0.3 cm portion of grayish-brown, necrotic-appearing skin and soft tissue. Folder Seamer Automatic sections are submitted in one cassette. Microscopic Description: The histologic sections show ulcerated, necrotic tissue with suppurative inflammation present, consisting of large collections of neutrophils with a very degenerated background. Diagnosis: Ulcerated, necrotic tissue consistent with debridement, right leg ulcer. JOB# [id number]
== END 2017-05-23 18:45 | disposition home health service (06) | DRG 539 ==
LOC: ER 21:38 → MSI 05-18 02:58 → TELE 05-20 15:11 → MSI 05-20 15:13
PROVIDERS: ADMIT Internal Medicine; ATTEND Internal Medicine
PROC: 3E1M39Z Irrigation of Peritoneal Cavity using Dialysate, Percutaneous Approach (ICD-10-PCS; 2017-05-20)
PROC: 0HBKXZZ Excision of Right Lower Leg Skin, External Approach (ICD-10-PCS; principal; 2017-05-22)
PROC: 0H9CX0Z Drainage of Left Upper Arm Skin with Drainage Device, External Approach (ICD-10-PCS; 2017-05-22)
DX: M86.8X1 Other osteomyelitis, shoulder (principal); K65.9 Peritonitis, unspecified; I13.2 Hypertensive heart and chronic kidney disease with heart failure and with stage 5 chronic kidney disease, or end stage renal disease; E11.22 Type 2 diabetes mellitus with diabetic chronic kidney disease; E11.51 Type 2 diabetes mellitus with diabetic peripheral angiopathy without gangrene; L97.919 Non-pressure chronic ulcer of unspecified part of right lower leg with unspecified severity; I50.9 Heart failure, unspecified; D64.9 Anemia, unspecified; S63.601A Unspecified sprain of right thumb, initial encounter; N18.6 End stage renal disease; L02.414 Cutaneous abscess of left upper limb; E87.1 Hypo-osmolality and hyponatremia; L03.113 Cellulitis of right upper limb; M12.541 Traumatic arthropathy, right hand; S81.801A Unspecified open wound, right lower leg, initial encounter; E78.00 Pure hypercholesterolemia, unspecified; Z99.2 Dependence on renal dialysis; N40.0 Benign prostatic hyperplasia without lower urinary tract symptoms; Z95.1 Presence of aortocoronary bypass graft; I25.10 Atherosclerotic heart disease of native coronary artery without angina pectoris; E78.5 Hyperlipidemia, unspecified; H40.9 Unspecified glaucoma; K21.9 Gastro-esophageal reflux disease without esophagitis; W06.XXXA Fall from bed, initial encounter; Y93.89 Activity, other specified; Y92.042 Bedroom in boarding-house as the place of occurrence of the external cause; Y99.8 Other external cause status; Z79.4 Long term (current) use of insulin
CPT/HCPCS: 36415-UA; 71045-TC; 73100-TC-RT; 78315-TC; 80048-TC; 80053-TC; 80202-TC; 81001-TC; 82042-TC; 82150-TC; 82248-TC; 82310-TC; 82945-TC; 82948-90; 83036-90; 83605; 83615-TC; 83690-TC; 83735-TC; 83880-TC; 84100-TC; 84157-TC; 84443-TC; 84484-TC; 85007-TC; 85025-TC; 85027-TC; 85610-TC; 85652-TC; 86141-TC; 87070-90; 87075-90; 87205-90; 88304-TC; 89051-TC; 90799; 90937; 93005; 93925-TC; 93931-RT-TC; 93970-TC-50; 93971-TC-RT; A9503; J0696; J1815; J2543; J2704; J3370; X3904; Z7610